=== PATIENT | male | born 1940 | race Caucasian/White ===

== ENCOUNTER 2016-12-21 07:10 | Day surgery (SDC) | payer MEDICARE ==
[~2016-12-21] VITALS: Ht 185.4 cm; Wt 84.3 kg
[~2016-12-21 07:10] MED LIST: ASPI-557 PO; ATOR10TA64 PO; LEVO50TA11 PO; LIDOCAINE 1% (10mg/ml) 2ml SDV INJ ONE; LR 1,000 ML IV SCH; OMEP20CA10 PO
--- OUTSIDE RECORDS SUMMARY | 2016-12-21 07:23 | XMS REPORT | Referral Summary ---
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 Discharge Disposition: 01-Home or Self Care Attending Physician: Marcus Viveros MD Admitting Physician: aMrcus Viveros MD Vital Signs Most recent to 1 oldest [Reference Range]: Blood Pressure 122/76 mmHg [90-140/60-90 mmHg] (06/05/16 9:15 AM) Problem List Condition Effective Dates Status Health Status Informant Actinic keratosis Active (disorder)(Confirmed ) BPH with urinary Active obstruction(Confirme d) Chicken Active pox(Confirmed) Dementia(Confirmed) Active Dupuytren Active contracture(Confirme d) GERD Active (gastroesophageal reflux disease)(Confirmed) Hepatitis(Confirmed) 1982 Active High Active cholesterol(Confirme d) Adult Active hypothyroidism(Confi rmed) Jaundice(Confirmed) 1982 Active Elevated Active PSA(Confirmed) 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) Xerosis of Active skin(Confirmed) Allergies, Adverse Reactions, Alerts No Known Allergies Medications Aspirin Low Dose 81 mg, Oral, Daily, 0 Refill(s) Start Date: 01/13/14 Status: Ordered atorvastatin 10 mg oral tablet See Instructions, TAKE ONE TABLET BY MOUTH EVERY NIGHT AT BEDTIME, # 90 tabs, eRx: [facility] #[id number], TAKE ONE TABLET BY MOUTH EVERY NIGHT AT BEDTIME Start Date: 05/29/16 Status: Ordered Eye Promise Eye Promise, See Instructions, ONE ORAL DAILY IN EVENING, 0 Refill(s) Start Date: 07/05/15 Status: Ordered levothyroxine 50 mcg (0.05 mg) oral tablet 50 mcg 1 tabs, Oral, Daily, # 90 tabs, 1 Refill(s), Pharmacy: [facility] # [id number], 1 tabs Oral Daily Start Date: 03/16/16 Status: Ordered Lutein 20 mg oral tablet 1 tabs, Oral, Daily, # 30 tabs, 0 Refill(s) Start Date: 01/13/14 Status: Ordered Misc Medication See Instructions, B COMPLEX VITAMIN ONE ORAL DAILY IN EVENING, 0 Refill(s) Start Date: 05/10/16 Status: Ordered multivitamin 1 tabs, Oral, Daily, 0 Refill(s) Start Date: 01/13/14 Status: Ordered omeprazole 20 mg oral delayed release capsule 20 mg 1 caps, Oral, Daily, # 90 caps, 1 Refill(s), Pharmacy: [facility] # [id number], 1 caps Oral Daily Start Date: 03/16/16 Status: Ordered Results No data available for this section Immunizations Vaccine Date Refusal Reason tetanus/diphth/pertuss (Tdap) adult/adol 02/20/10 influenza virus vaccine, inactivated 08/30/15 influenza virus vaccine, inactivated 05/06/14 influenza virus vaccine, live 05/06/13 tetanus-diphth toxoids (Td) adult/adol 08/04/01 Procedures Procedure Date Related Diagnosis Body Site Measurement of post-voiding residual urine 06/05/16 and/or bladder capacity by ultrasound, non-imaging Cystoscopy with Transurethral Resection 05/10/16 Bladder Neck1 Cystoscopy Prostate Thermal Treatment2 07/19/15 S/P colonoscopy 2004 H/O circumcision 1942 SURGERY TO CORRECT TIGHT TENDONS IN BILAT HANDS DUE TO DUPYTREN'S CONTRACTURE3 1auto-populated from documented surgical case 2auto-populated from documented surgical case 3X 3 Social History Social History Type Response Smoking Status Never smoker Assessment and Plan Extracted from: Title: Office Visit Note Author: Marcus Viveros MD Date: 06/05/16 Assessment/Plan 1.BPH without urinary obstruction
--- OUTSIDE RECORDS SUMMARY | 2016-12-21 07:23 | XMS REPORT | Referral Summary ---
Author Author [facility] Organization [facility] Address Unknown Phone Unavailable Care Team Providers Care Coin Machine Collector Name Role Phone Leija Alicia Primary Care Physician [phone] Encounter Date(s): 05/10/16 - 05/10/16 [facility] [address] [place], [place] [address] Discharge Disposition: 01-Home or Self Care Attending Physician: Marcus Viveros MD Admitting Physician: Marcus Viveros MD Vital Signs Most recent to 1 oldest [Reference Range]: Temperature Skin 36.0 degC [36-37 degC] (05/10/16 9:26 AM) Temperature Temporal 35.9 degC Artery [36.3-37.8 *LOW* degC] (05/10/16 2:09 PM) Heart Rate Monitored 75 bpm [60-100 bpm] (05/10/16 2:45 PM) Respiratory Rate 47 br/min [14-20 br/min] *HI* (05/10/16 2:30 PM) Blood Pressure 126/86 mmHg [90-140/60-90 mmHg] (05/10/16 2:45 PM) Mean Arterial 106 mmHg Pressure, Cuff (05/10/16 2:45 PM) SpO2 98 % (05/10/16 2:45 PM) Problem List Condition Effective Dates Status Health Status Informant Actinic keratosis Active (disorder)(Confirmed ) BPH with urinary Active obstruction(Confirme d) Chicken Active pox(Confirmed) Dementia(Confirmed) Active Dupuytren Active contracture(Confirme d) GERD Active (gastroesophageal reflux disease)(Confirmed) Hepatitis(Confirmed) 1983 Active High Active cholesterol(Confirme d) Adult Active [...] NIGHT AT BEDTIME, # 90 tabs, eRx: [facility] #[id number], TAKE ONE TABLET BY MOUTH EVERY NIGHT AT BEDTIME Start Date: 02/21/16 Status: Ordered Eye Promise Eye Promise, See Instructions, ONE ORAL DAILY IN EVENING, 0 Refill(s) Start Date: 07/05/15 Status: Ordered Flomax 0.4 mg oral capsule 0.8 mg 2 caps, Oral, Daily, # 60 caps, 4 Refill(s), Pharmacy: [facility] # [id number], 2 caps Oral Daily Start Date: 03/21/16 Status: Ordered levothyroxine 50 mcg (0.05 mg) oral tablet 50 mcg 1 tabs, Oral, Daily, # 90 tabs, 1 Refill(s), Pharmacy: [facility] # [id number], 1 tabs Oral Daily Start Date: 03/16/16 [...] Daily, # 90 caps, 1 Refill(s), Pharmacy: [facility] # [id number], 1 caps Oral Daily Start Date: 03/16/16 Status: Ordered Results Chemistry Most recent to 1 oldest [Reference Range]: Blood Glucose, 92 mg/dL Capillary [70-100 (05/10/16 9:44 AM) mg/dL] Blood Glucose, 92 mg/dL Capillary [74-106 (05/10/16 9:44 AM) mg/dL] Immunizations Vaccine Date Refusal Reason tetanus/diphth/pertuss (Tdap) adult/adol 02/20/10 influenza virus vaccine, inactivated 08/30/15 influenza virus vaccine, inactivated 05/06/14 influenza virus vaccine, live 05/06/13 tetanus-diphth toxoids (Td) adult/adol 08/04/01 Procedures Procedure Date Related Diagnosis Body Site Cystoscopy with Transurethral Resection 05/10/16 Bladder Neck1 Cystoscopy Prostate Thermal Treatment2 07/19/15 S/P colonoscopy 2004 H/O circumcision 194 SURGERY TO CORRECT TIGHT TENDONS IN BILAT HANDS DUE TO DUPYTREN'S CONTRACTURE3 1auto-populated from documented surgical case 2auto-populated from documented surgical case 3X 3 Social History Social History Type Response Smoking Status Never smoker Assessment and Plan No data available for this section
--- OUTSIDE RECORDS SUMMARY | 2016-12-21 07:23 | XMS REPORT | Referral Summary ---
Author Author [facility] Organization [facility] Address Unknown Phone Unavailable Care Team Providers Care Clinical Mental Health Counselor Name Role Phone Alicia Leija Primary Care Physician [phone] Encounter Date(s): 03/16/16 - 03/16/16 [facility] [place] [address] Discharge Diagnosis: GERD (gastroesophageal reflux disease) Discharge Diagnosis: BPH with urinary obstruction Discharge Diagnosis: Adult hypothyroidism Discharge Diagnosis: High cholesterol Discharge Disposition: 01-Home or Self Care Attending Physician: Natalee Bravo PA-C Admitting Physician: Natalee Bravo PA-C Vital Signs Most recent to 1 oldest [Reference Range]: Temperature Tympanic 36.9 degC [36.6-38.1 degC] (03/16/16 1:06 PM) Peripheral Pulse 72 bpm Rate [60-100 bpm] (03/16/16 1:06 PM) Respiratory Rate 17 br/min [14-20 br/min] (03/16/16 1:06 PM) Blood Pressure 108/60 mmHg [90-140/60-90 mmHg] (03/16/16 1:06 PM) SpO2 98 % (03/16/16 1:06 PM) Problem List Condition Effective Dates Status [...] NIGHT AT BEDTIME, # 90 tabs, eRx: [facility] #[id number], TAKE ONE TABLET BY MOUTH EVERY NIGHT AT BEDTIME Start Date: 02/21/16 Status: Ordered Eye Promise Eye Promise, 0 Refill(s) Start Date: 07/05/15 Status: Ordered Flomax 0.4 mg oral capsule 0.4 mg 1 caps, Oral, Daily, # 90 caps, 0 Refill(s), Pharmacy: [facility] # [id number], 1 caps Oral Daily Start Date: 03/07/16 Status: Ordered levothyroxine 50 mcg (0.05 mg) oral tablet 50 mcg 1 tabs, Oral, Daily, # 90 tabs, 1 Refill(s), Pharmacy: [facility] # [id number], 1 tabs Oral Daily Start Date: 03/16/16 Status: Ordered Lutein 20 mg oral tablet 1 tabs, Oral, Daily, # 30 tabs, 0 Refill(s) Start Date: 01/13/14 Status: Ordered multivitamin Daily, 0 Refill(s) Start Date: 01/13/14 Status: Ordered omeprazole 20 mg oral delayed release capsule 20 mg 1 caps, Oral, Daily, # 90 caps, 1 Refill(s), Pharmacy: [facility] # [id number], 1 caps Oral Daily Start Date: 03/16/16 Status: Ordered Results No data available for this section Immunizations Vaccine Date Refusal Reason tetanus/diphth/pertuss (Tdap) adult/adol 02/20/10 influenza virus vaccine, inactivated 08/30/15 influenza virus vaccine, inactivated 05/06/14 influenza virus vaccine, live 05/06/13 tetanus-diphth toxoids (Td) adult/adol 08/04/01 Procedures Procedure Date Related Diagnosis Body Site Cystoscopy Prostate Thermal Treatment1 07/19/15 S/P colonoscopy 2004 H/O circumcision 1942 SURGERY TO CORRECT TIGHT TENDONS IN BILAT HANDS DUE TO DUPYTREN'S CONTRACTURE2 1auto-populated from documented surgical case 2X 3 Social History Social History Type Response Smoking Status Never smoker Assessment and Plan Extracted from: Title: Ambulatory Patient Education Author: Natalee Bravo PA-C Date : 03/16/16 Cardiovascular Dyslipidemia Dyslipidemia is an imbalance of the lipids in your blood. Lipids are waxy, fat- like proteins that your body needs in small amounts. Dyslipidemia often involves the lipids cholesterol or triglycerides. Common forms of dyslipidemia are: High levels of bad cholesterol (LDL cholesterol). LDL cholesterol is the type of cholesterol that causes heart disease. Low levels of good cholesterol (HDL cholesterol). HDL cholesterol is the type of cholesterol that helps protect against heart disease. High levels of triglycerides. Triglycerides are a fatty substance in the blood linked to a buildup of plaque on your arteries. RISK FACTORS Increased age. Having a family history of high cholesterol. Certain medicines, including control pills, diuretics, beta- blockers, and some medicines for depression. Smoking. Eating a high-fat diet. Being overweight. Medical conditions such as diabetes, polycystic ovary syndrome, , kidney disease, and hypothyroidism. Lack of regular exercise. SIGNS AND SYMPTOMS There are no signs or symptoms with dyslipidemia. DIAGNOSIS A simple blood test called a fasting blood test can be done to determine your level of: Total cholesterol. This is the combined number of LDL cholesterol and HDL cholesterol. A healthy number is lower than 200. LDL cholesterol. The goal number for LDL cholesterol is different for each person depending on risk factors. Ask your health care provider what your LDL cholesterol number should be. HDL cholesterol. A healthy level of HDL cholesterol is 60 or higher. A number lower than 40 for men or 50 for women is a danger sign. Triglycerides. A healthy triglyceride number is less than 150. TREATMENT Dyslipidemia is a treatable condition. Your health care provider will advise you on what type of treatment is best based on your age, your test results, and current guidelines. Treatment may include: Dietary changes. A dietitian may help you create a diet that is based on your risk factors, conditions, and lifestyle. Regular exercise. This can help lower your LDL cholesterol, raise your HDL cholesterol, and help with weight management. Check with your health care provider before beginning an exercise program. Most people should participate in 30 minutes of brisk exercise 5 days a week. Quitting smoking. Medicines to lower LDL cholesterol and triglycerides. If you have high levels of triglycerides, your health care provider may: Have you stop drinking alcohol. Have you restrict your fat intake. Have you eliminate refined sugars from your diet. Treat you for other conditions, such as underactive thyroid gland ( hypothyroidism) and high blood sugar (hyperglycemia). Your health care provider will monitor your lipid levels with regular blood tests. HOME CARE INSTRUCTIONS Eat a healthy diet. Follow any diet instructions if they were given to you by your health care provider. Maintain a healthy weight. Exercise regularly based on the recommendations of your health care provider. Do not use any tobacco products, including cigarettes, chewing tobacco, or electronic cigarettes. Take medicines only as directed by your health care provider. Keep all follow-up visits as directed by your health care provider. SEEK MEDICAL CARE IF: You are having possible side effects from your medicines. This information is not intended to replace advice given to you by your health care provider. Make sure you discuss any questions you have with your health care provider. Document Released: 07/27/2014 Document Revised: 08/12/2015 Document Reviewed: [facility] Patient Information 2016 [facility]. Family Medicine Gastroesophageal Reflux Disease, Adult Gastroesophageal reflux disease (GERD) happens when acid from your stomach flows up into the esophagus. When acid comes in contact with the esophagus, the acid causes soreness (inflammation) in the esophagus. Over time, GERD may create small holes (ulcers) in the lining of the esophagus. CAUSES Increased body weight. This puts pressure on the stomach, making acid rise from the stomach into the esophagus. Smoking. This increases acid production in the stomach. Drinking alcohol. This causes decreased pressure in the lower esophageal sphincter (valve or ring of muscle between the esophagus and stomach), allowing acid from the stomach into the esophagus. Late evening meals and a full stomach. This increases pressure and acid production in the stomach. A malformed lower esophageal sphincter. Sometimes, no cause is found. SYMPTOMS Burning pain in the lower part of the mid-chest behind the breastbone and in the mid-stomach area. This may occur twice a week or more often. Trouble swallowing. Sore throat. Dry cough. Asthma-like symptoms including chest tightness, shortness of breath, or wheezing. DIAGNOSIS Your caregiver may be able to diagnose GERD based on your symptoms. In some cases, X-rays and other tests may be done to check for complications or to check the condition of your stomach and esophagus. TREATMENT Your caregiver may recommend [id number] or prescription medicines to help decrease acid production. Ask your caregiver before starting or adding any new medicines. HOME CARE INSTRUCTIONS Change the factors that you can control. Ask your caregiver for guidance concerning weight loss, quitting smoking, and alcohol consumption. Avoid foods and drinks that make your symptoms worse, such as: Caffeine or alcoholic drinks. Chocolate. Peppermint or mint flavorings. Garlic and onions. Spicy foods. [place] fruits, such as oranges, demarco, or limes. Tomato-based foods such as sauce, chili, salsa, and pizza. Fried and fatty foods. Avoid lying down for the 3 hours prior to your bedtime or prior to taking a nap. Eat small, frequent meals instead of large meals. Wear loose-fitting clothing. Do not wear anything tight around your waist that causes pressure on your stomach. Raise the head of your bed 6 to 8 inches with wood blocks to help you sleep. Extra pillows will not help. Only take [id number] or prescription medicines for pain, discomfort , or fever as directed by your caregiver. Do not take aspirin, ibuprofen, or other nonsteroidal anti-inflammatory drugs (NSAIDs). SEEK IMMEDIATE MEDICAL CARE IF: You have pain in your arms, neck, jaw, teeth, or back. Your pain increases or changes in intensity or duration. You develop nausea, vomiting, or sweating (diaphoresis). You develop shortness of breath, or you faint. Your vomit is green, yellow, black, or looks like coffee grounds or blood. Your stool is red, bloody, or black. These symptoms could be signs of other problems, such as heart disease, gastric bleeding, or esophageal bleeding. MAKE SURE YOU: Understand these instructions. Will watch your condition. Will get help right away if you are not doing well or get worse. This information is not intended to replace advice given to you by your health care provider. Make sure you discuss any questions you have with your health care provider. Document Released: 05/01/2006 Document Revised: 08/12/2015 Document Reviewed: [facility] Patient Information 2016 [facility]. Hypothyroidism Hypothyroidism is a disorder of the thyroid. The thyroid is a large gland that is located in the lower front of the neck. The thyroid releases hormones that control how the body works. With hypothyroidism, the thyroid does not make enough of these hormones. CAUSES Causes of hypothyroidism may include: Viral infections. . Your own defense system (immune system) attacking your thyroid. Certain medicines. defects. Past radiation treatments to your head or neck. Past treatment with radioactive iodine. Past surgical removal of part or all of your thyroid. Problems with the gland that is located in the center of your brain ( pituitary). SIGNS AND SYMPTOMS Signs and symptoms of hypothyroidism may include: Feeling as though you have no energy (lethargy). Inability to tolerate cold. Weight gain that is not explained by a change in diet or exercise habits. Dry skin. Coarse hair. Menstrual irregularity. Slowing of thought processes. Constipation. Sadness or depression. DIAGNOSIS Your health care provider may diagnose hypothyroidism with blood tests and ultrasound tests. TREATMENT Hypothyroidism is treated with medicine that replaces the hormones that your body does not make. After you begin treatment, it may take several weeks for symptoms to go away. HOME CARE INSTRUCTIONS Take medicines only as directed by your health care provider. If you start taking any new medicines, tell your health care provider. Keep all follow-up visits as directed by your health care provider. This is important. As your condition improves, your dosage needs may change. You will need to have blood tests regularly so that your health care provider can watch your condition. SEEK MEDICAL CARE IF: Your symptoms do not get better with treatment. You are taking thyroid replacement medicine and: You sweat excessively. You have tremors. You feel anxious. You lose weight rapidly. You cannot tolerate heat. You have emotional swings. You have diarrhea. You feel weak. SEEK IMMEDIATE MEDICAL CARE IF: You develop chest pain. You develop an irregular heartbeat. You develop a rapid heartbeat. This information is not intended to replace advice given to you by your health care provider. Make sure you discuss any questions you have with your health care provider. Document Released: 07/22/2006 Document Revised: 08/12/2015 Document Reviewed: [facility] Patient Information 2016 [employer]. No follow up information was provided. Extracted from: Title: Office Visit Note- Med ck Author: Natalee Bravo PA-C Date: Assessment/Plan Adult hypothyroidism TSH was normal in August. Will refill Synthroid at this time. Recheck in 6 months. Ordered: Office Visit Level 4 Est 22391 BPH with urinary obstruction Follow with urology. Still having some issues with urinary frequency and they are adjusting his meds. Ordered: Office Visit Level 4 Est 71971 GERD (gastroesophageal reflux disease) Continue on Prilosec.Refills sent. Ordered: CBC w/ Differential Comprehensive Metabolic Panel Office Visit Level 4 Est 62071 High cholesterol Will check some labs when he is fasting.Contact pharmacy when running low, and may refill #90.Recheck in 6 months. Ordered: CBC w/ Differential Comprehensive Metabolic Panel Lipid Panel Office Visit Level 4 Est 86812 Orders: levothyroxine, 50 mcg 1 tabs, Oral, Daily, # 90 tabs, 1 Refill(s), Pharmacy: [facility] #[id number], 1 tabs Oral Daily omeprazole, 20 mg 1 caps, Oral, Daily, # 90 caps, 1 Refill(s), Pharmacy: [facility] #[id number], 1 caps Oral Daily
--- OUTSIDE RECORDS SUMMARY | 2016-12-21 07:23 | XMS REPORT | Referral Summary ---
Author Author [facility] Organization [facility] Address Unknown Phone Unavailable Care Team Providers Care Thermodynamics Teacher Name Role Phone Alicia Leija Primary Care Physician [phone] Encounter VC Date(s): 07/26/15 - 07/26/15 [facility] [address] [place] [address] Discharge Disposition: 01-Home or Self Care Attending Physician: Marcus Viveros MD Admitting Physician: Marcus Viveros MD Vital Signs Most recent to 1 oldest [Reference Range]: Blood Pressure 130/80 mmHg [90-140/60-90 mmHg] (07/26/15 10:51 AM) Problem List Condition Effective Dates Status Health Status Informant Actinic keratosis Active (disorder)(Confirmed ) Chicken Active pox(Confirmed) Dementia(Confirmed) Active Dupuytren Active contracture(Confirme d) Hepatitis(Confirmed) 1982 Active High Active cholesterol(Confirme d) Adult Active hypothyroidism(Confi rmed) Jaundice(Confirmed) 1982 Active Elevated Active PSA(Confirmed) 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) Xerosis of Active skin(Confirmed) Allergies, Adverse Reactions, Alerts No Known Medication Allergies Medications Aspirin Low Dose 81 mg, Oral, Daily, 0 Refill(s) Start Date: 01/13/14 Status: Ordered atorvastatin 10 mg oral tablet See Instructions, TAKE 1 TABLET AT BEDTIME, # 90 tabs, 1 Refill(s), eRx: [facility], TAKE 1 TABLET AT BEDTIME Start Date: 01/10/15 Status: Ordered Cialis 10 mg oral tablet See Instructions, as needed for erectile dysfunction, 0.5 tabs Oral daily, # 48 tabs, 1 Refill(s) Start Date: 05/27/15 Status: Ordered Eye Promise Eye Promise, 0 Refill(s) Start Date: 07/05/15 Status: Ordered Lutein 20 mg oral tablet 1 tabs, Oral, Daily, # 30 tabs, 0 Refill(s) Start Date: 01/13/14 Status: Ordered multivitamin Daily, 0 Refill(s) Start Date: 01/13/14 Status: Ordered omeprazole 20 mg oral delayed release capsule See Instructions, TAKE 1 CAPSULE DAILY BEFORE A MEAL, # 90 caps, 1 Refill(s), eRx: [facility], TAKE 1 CAPSULE DAILY BEFORE A MEAL Start Date: 02/07/15 Status: Ordered Synthroid 50 mcg (0.05 mg) oral tablet 50 mcg 1 tabs, Oral, Daily, Will need appt. for next refill., # 90 tabs, 0 Refill(s), [facility]acy: [facility], 1 tabs Oral Daily,x90 days, Instr:Will need appt. for next refill. Start Date: 02/07/15 Stop Date: 05/08/15 Status: Ordered Results No data available for this section Immunizations Vaccine Date Refusal Reason tetanus/diphth/pertuss (Tdap) adult/adol 02/20/10 influenza virus vaccine, inactivated 05/06/14 influenza virus [...]
--- OUTSIDE RECORDS SUMMARY | 2016-12-21 07:23 | XMS REPORT | Referral Summary ---
Author Author [facility] Organization [facility] Address Unknown Phone Unavailable Care Team Providers Care Switchboard Operator Name Role Phone Alicia Leija Primary Care Physician [phone] Encounter [facility] Date(s): 08/31/15 - 08/31/15 [facility] [address] [place] [id number] Discharge Disposition: 01-Home or Self Care Attending Physician: Marcus Viveros MD Admitting Physician: Marcus Viveros MD Vital Signs Most recent to 1 oldest [Reference Range]: Peripheral Pulse 68 bpm Rate [60-100 bpm] (08/31/15 11:03 AM) Blood Pressure 105/75 mmHg [90-140/60-90 mmHg] (08/31/15 11:03 AM) Problem List Condition Effective Dates Status [...] NIGHT AT BEDTIME, # 90 tabs, eRx: [facility] #[id number], TAKE ONE TABLET BY MOUTH EVERY NIGHT AT BEDTIME Start Date: 08/12/15 Status: Ordered Cialis 10 mg oral tablet See Instructions, as needed for erectile dysfunction, 0.5 tabs Oral daily, # 48 tabs, 1 Refill(s) Start Date: 05/27/15 Status: Ordered Eye Promise Eye Promise, 0 Refill(s) Start Date: 07/05/15 Status: Ordered Flomax 0.4 mg oral capsule 0.4 mg 1 caps, Oral, Daily, # 90 caps, 0 Refill(s), Pharmacy: [facility] # [id number], 1 caps Oral Daily Start Date: 08/31/15 Status: Ordered Lutein 20 mg oral tablet [...] # 90 tabs, 0 Refill(s), [facility]acy: [facility], 1 tabs Oral Daily,x90 days, [...] Cystoscopy Prostate Thermal Treatment1 07/19/15 S/P colonoscopy 2005 H/O circumcision 1943 SURGERY TO 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
[2016-12-21 07:24] VITALS: BP 113/73; PULSE 79; RESP 16; TEMP 98.3; O2SAT 94
--- OUTSIDE RECORDS SUMMARY | 2016-12-21 07:24 | XMS REPORT | Continuity of Care Document ---
Author Author [facility] Organization [facility] Address Unknown Phone Unavailable Allergies Active Description Code Type Severity Reaction Onset Reported/Identified Relationship to Patient Clinical Status Yes NKDA N/A N/A Yes No Known Medication Allergies NKMA N/A N/A 02/22/2014 Yes No Known Medication Allergies NKMA N/A N/A 02/22/2014 Yes No Known Allergies No Known Allergies Drug Allergy Unknown N/A 03/08/2015 Yes No Known Allergies NKMA N/A N/A 11/30/2015 Yes No Known Allergies NKMA N/A N/A 11/30/2015 Medications Medication Packaging Start Date Stop Date Route Dosage Sig multivitamin(multivitamin) 01/13/2014 Daily atorvastatin(Lipitor 10 mg oral tablet) 1 tabs 01/13/201401/10 Oral 10 mg 1 tabs, Oral, Bedtime (once a day) omeprazole(PriLOSEC 20 mg oral delayed release capsule) 1 caps 01/13/2014 02/07/2015 Oral 20 mg 1 caps, Oral, Daily tamsulosin(tamsulosin 0.4 mg oral capsule) 1 caps 01/13/2014 Oral 0.4 mg 1 caps, Oral, Daily levothyroxine(Synthroid 50 mcg (0.05 mg) oral tablet) 1 tabs 04/07/2014 05/21/2014 Oral 50 mcg 1 tabs, Oral, Daily, 30 tabs tamsulosin(tamsulosin 0.4 mg oral capsule) 1 caps 04/21/2014 Oral 0.4 mg 1 caps, Oral, Daily, 90 caps tadalafil(Cialis 5 mg oral tablet) 1 tabs 04/28/20142013 Oral 5 mg 1 tabs, Oral, Daily, 30 tabs tamsulosin(tamsulosin 0.4 mg oral capsule) 1 caps 06/25/2014 Oral 0.4 mg 1 caps, Oral, Daily, 90 caps tadalafil(Cialis 5 mg oral tablet) 1 tabs 07/28/20142014 Oral 5 mg 1 tabs, Oral, Daily, 30 tabs tadalafil(Cialis 10 mg oral tablet) 0.5 tabs 10/05/20142014 Oral 5 mg 5 mg=0.5 tabs, Oral, Daily, PRN: as needed for erectile dysfunction , 48 tabs, 0 Refill(s) atorvastatin(atorvastatin 10 mg oral tablet) 01/10/201508/12 See Instructions, TAKE 1 TABLET AT BEDTIME, 90 tabs, 1 Refill(s) [id number] 02/03/2015 ORAL daily Lactated Ringers Injection(Lactated Ringers Injection 1, 000 mL) 1,000 mL 201407/19/2015 IV 20 mL/hr, IV HYDROcodone-acetaminophen(HYDROcodone-acetaminophen 5 mg- 325 mg oral tablet) 1 tabs 07/19/2015 07/19/2015 Oral 1 tabs, Oral, q4hr, PRN: Pain Severe (7-10) ondansetron(Zofran) 2 mL 07/19/2015 07/19/2015 IV Push 4 mg 4 mg= 2 mL, IV Push, q6hr, PRN: Nausea or Vomiting Dextrose 5% with 0.45% NaCl and KCl 20 m(Dextrose 5% with 0.45% NaCl and KCl 20 mEq/L 1,000 mL) 1, 000 mL 07/19/2015 07/19/2015 IV 125 mL/hr , IV ibuprofen(ibuprofen) 1 tabs 07/19/2015 07/19/2015 Oral 800 mg 800 mg=1 tabs, Oral, q8hr, PRN: Pain Moderate (4-6) ketorolac(Toradol) 1 mL 07/19/2015 07/19/2015 IV Push 15 mg 15 mg =1 mL, IV Push, q6hr, PRN: Pain Moderate (4-6) acetaminophen(acetaminophen) 2 tabs 07/19/2015 07/19/2015 Oral 650 mg 650 mg=2 tabs, Oral, q4hr, PRN: Pain Mild (1-3) tamsulosin(Flomax 0.4 mg oral capsule) 1 caps 08/31/20152015 Oral 0.4 mg 0.4 mg=1 caps, Oral, Daily, 90 caps, 0 Refill(s) tamsulosin(Flomax 0.4 mg oral capsule) 1 caps 03/07/2016 Oral 0.4 mg 0.4 mg=1 caps, Oral, Daily, 90 caps, 0 Refill(s) levothyroxine(levothyroxine 50 mcg (0.05 mg) oral tablet) 1 tabs 03/16/2016 09/03/2016 Oral 50 mcg 50 mcg=1 tabs, Oral, Daily, 90 tabs, 1 Refill (s) omeprazole(omeprazole 20 mg oral delayed release capsule) 1 caps 03/16/2016 09/03/2016 Oral 20 mg 20 mg=1 caps, Oral, Daily, 90 caps, 1 Refill(s ) tamsulosin(Flomax 0.4 mg oral capsule) 2 caps 03/21/20162015 Oral 0.8 mg 0.8 mg=2 caps, Oral, Daily, 60 caps, 4 Refill(s) atorvastatin(atorvastatin 10 mg oral tablet) 1 tabs 09/03/2016 Oral 10 mg 10 mg=1 tabs, Oral, Bedtime (once a day), LAST FILL. PT. NEEDS AN APPT., 90 tabs, 0 Refill(s) levothyroxine(levothyroxine 50 mcg (0.05 mg) oral tablet) 09/03/2016 See Instructions, TAKE ONE TABLET BY MOUTH DAILY, 90 tabs omeprazole(omeprazole 20 mg oral delayed release capsule) 09/03/2016 See Instructions, TAKE ONE CAPSULE BY MOUTH DAILY, 90 caps pneumococcal 13-valent conjugate vaccine(Prevnar 13 intramuscular suspension) 0.5 mL 11/08/2016 11/08/2016 IntraMuscular 0.5 mL , IntraMuscular, Once Problems Date Dx Coded Attending Type Code Diagnosis Diagnosed By 05/15/2016 Viveros Clay Final E03.9 Hypothyroidism, unspecified 05/15/2016 Viveros Clay Final F03.90 Unspecified dementia without behavioral disturbance 05/15/2016 Viveros Clay Final F41.8 Other specified anxiety disorders 05/15/2016 Viveros Clay Final L57.0 Actinic keratosis 05/15/2016 Viveros Clay Final L85.3 Xerosis cutis 05/15/2016 Viveros Clay Final M72.0 Palmar fascial fibromatosis [Dupuytren] 05/15/2016 Viveros Marcus Final 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 05/15/2016 Viveros Clay Reason 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 05/15/2016 Lymiranda Marcus Final N40.1 Benign prostatic hyperplasia with lower urinary tract symptoms 05/15/2016 Viveros Marcus Final R33.8 Other retention of urine 05/15/2016 Viveros Marcus Final Z79.82 senior living (current) use of aspirin 05/15/2016 Viveros Marcus Final Z79.899 Other group home (current) drug therapy 05/15/2016 Viveros Clay Final Z86.19 Personal history of other infectious and parasitic diseases 05/15/2016 Viveros Marcus Final Z87.448 Personal history of other diseases of urinary system Procedures Code Description Performed By Performed On [facility] VITRECTOMY NEC Wayne MISHRA, Tai P 03/08/2015 14.75 VITREOUS SUBSTITUT INJEC Tai Black MD P 03/08/2015 14.9 OTHER POST SEGMENT OPS Tai Black MD P 03/08/2015 [id number] Transurethral resection; of postoperative bladder neck contracture 05/10/2016 Results Test Result Range HEMOGLOBIN - 03/08/15 13:30 MEAN CELL VOLUME 97.2 fl 80.0-100.0 HEMOGLOBIN 14.5 gm/dL 14.0-18.0 Microbiology METABOLIC PANEL, BASIC - 03/08/15 13:30 POTASSIUM 4.4 mmol/L 3.5-5.3 EST GFR (MDRD) 60 mL/min > 59 ANION GAP 9 mmol/L 5-15 EST CrCl (CG) > 60 mL/min > 59 GLUCOSE 95 mg/dL 70-99 CALCIUM 8.6 mg/dL 8.5-10.1 BLOOD UREA NITROGEN 17 mg/dL 7-20 CREATININE 1.2 mg/dL 0.7-1.3 SODIUM 142 mmol/L 135-148 CHLORIDE 106 mmol/L 98-110 CARBON DIOXIDE 27 mmol/L 21-32 Microbiology Glucose NPT - 05/10/16 09:44 Glucose NPT 92 mg/dL 70-100 Encounters ACCT No. Visit Date/Time Discharge Status Pt. Type Provider Facility Loc./Unit Complaint [id number] 09/18/2013 09:40:00 09/18/2013 23 :59:59 CLS Outpatient
--- OUTSIDE RECORDS SUMMARY | 2016-12-21 07:24 | XMS REPORT | Referral Summary ---
Author Author [facility] Organization [facility] Address Unknown Phone Unavailable Care Team Providers Care Gluing Machine Operator Automatic Name Role Phone Alicia Leija Primary Care Physician [phone] Encounter [facility] [id number] Date(s): 07/19/15 - 07/19/15 [facility] [address] [place], [place] [address] Discharge Disposition: 01-Home or Self Care Attending Physician: Marcus Viveros MD Admitting Physician: Marcus Viveros MD Vital Signs Most recent to 1 oldest [Reference Range]: Temperature Skin 36.2 degC [36-37 degC] (07/19/15 2:00 PM) Temperature Temporal 36.6 degC Artery [36.3-37.8 (07/19/15 1:35 PM) degC] Heart Rate Monitored 75 bpm [60-100 bpm] (07/19/15 2:30 PM) Respiratory Rate 18 br/min [14-20 br/min] (07/19/15 2:30 PM) Blood Pressure 133/84 mmHg [90-140/60-90 mmHg] (07/19/15 2:30 PM) Mean Arterial 104 mmHg Pressure, Cuff (07/19/15 2:30 PM) SpO2 97 % (07/19/15 2:30 PM) Problem List Condition Effective Dates Status [...] # 90 tabs, 0 Refill(s), [facility]: [facility], 1 tabs Oral Daily,x90 days, Instr:Will need appt. for next refill. Start Date: 02/07/15 Stop Date: 05/08/15 Status: Ordered Results Hematology Most recent to 1 oldest [Reference Range]: WBC [4.8-10.8 5.6 10*3/uL 10*3/uL] (07/19/15 10:37 AM) RBC [4.60-6.20] 4.35 *LOW* (07/19/15 10:37 AM) Hgb [14.0-18.0 14.3 gm/dL gm/dL] (07/19/15 10:37 AM) Hct [42.0-52.0 %] 41.8 % *LOW* (07/19/15 10:37 AM) MCV [82.0-99.0 fL] 96.1 fL (07/19/15 10:37 AM) MCH [27.0-32.0 pg] 32.9 pg *HI* (07/19/15 10:37 AM) MCHC [32.0-36.0 34.2 gm/dL gm/dL] (07/19/15 10:37 AM) RDW [11.5-14.5 %] 14.5 % (07/19/15 10:37 AM) Platelet [150-400 223 10*3/uL 10*3/uL] (07/19/15 10:37 AM) MPV [9.4-12.3 fL] 9.7 fL (07/19/15 10:37 AM) Immature 0.2 % Granulocytes (07/19/15 10:37 AM) [0.0-1.0 %] Neutrophils [51-75 54 % %] (07/19/15 10:37 AM) Lymphocytes [20-46 33 % %] (07/19/15 10:37 AM) Monocytes [4-11 %] 10 % (07/19/15 10:37 AM) Eosinophils [0-4 %] 2 % (07/19/15 10:37 AM) Basophils [0-2 %] 1 % (07/19/15 10:37 AM) Neutro Absolute 3.03 10*3 [1.90-7.00 10*3] (07/19/15 10:37 AM) Lymph Absolute 1.88 10*3 [0.80-3.30 10*3] (07/19/15 10:37 AM) Crowley Absolute 0.58 10*3 [0.30-1.00 10*3] (07/19/15 10:37 AM) Eos Absolute 0.10 10*3 [0.00-0.50 10*3] (07/19/15 10:37 AM) Baso Absolute 0.04 10*3 [0.00-0.20 10*3] (07/19/15 10:37 AM) Chemistry Most recent to 1 oldest [Reference Range]: Sodium Lvl [136-144 134 mEq/L mEq/L] *LOW* (07/19/15 10:37 AM) Potassium Lvl 4.2 mEq/L [3.6-5.1 mEq/L] (07/19/15 10:37 AM) Chloride [99-109 102 mEq/L mEq/L] (07/19/15 10:37 AM) CO2 [22-32 mEq/L] 27 mEq/L (07/19/15 10:37 AM) AGAP [3-20] 5 (07/19/15 10:37 AM) BUN [4-20 mg/dL] 16 mg/dL (07/19/15 10:37 AM) Glucose Lvl [70-100 94 mg/dL mg/dL] (07/19/15 10:37 AM) Creatinine Lvl 1.09 mg/dL [0.64-1.27 mg/dL] (07/19/15 10:37 AM) eGFR [>60] >60 1 (07/19/15:37 AM) Calcium Lvl 8.8 mg/dL [8.6-10.0 mg/dL] (07/19/15:37 AM) Albumin Lvl [3.5-4.8 3.8 gm/dL gm/dL] (07/19/15:37 AM) Total Protein 6.7 gm/dL [6.1-7.9 gm/dL] (07/19/15 10:37 AM) Globulin [1.9-4.3 2.9 gm/dL gm/dL] (07/19/15 10:37 AM) ALT [17-63 U/L] 27 U/L (07/19/15 10:37 AM) AST [15-41 U/L] 26 U/L (07/19/15 10:37 AM) Alk Phos [26-104 42 U/L U/L] (07/19/15 10:37 AM) Bili Total [0.2-1.2 1.0 mg/dL 2 mg/dL] (07/19/15 10:37 AM) PSA (wihout Reflex 2.4 ng/mL 3 Free) [0.0-6.5 (07/19/15 10:37 AM) ng/mL] Blood Glucose, 88 mg/dL Capillary [74-106 (07/19/15 10:48 AM) mg/dL] Blood Glucose, 88 mg/dL Capillary [70-100 (07/19/15 10:48 AM) mg/dL] Chol [0-200 mg/dL] 165 mg/dL (07/19/15 10:37 AM) Trig [0-150 mg/dL] 39 mg/dL (07/19/15 10:37 AM) HDL [>40 mg/dL] 69 mg/dL (07/19/15 10:37 AM) LDL [0-100 mg/dL] 88 mg/dL (07/19/15 10:37 AM) VLDL Cholesterol 8 mg/dL [0-30 mg/dL] (07/19/15 10:37 AM) Cardiac Risk 2.4 [0.0-5.7] (07/19/15 10:37 AM) 1Result Comment: Multiply eGFR results by 1.21 for race. 2Result Comment: Naproxen, specifically the metabolite O-desmethylnaproxen, may cause spurious elevation in Total Bilirubin levels. 3Result Comment: AUA PSA Best Practice Guidelines: Age-Adjusted PSA Values by Ethnic Group Age Range Asians - Caucasians Americans 40-49 0-2.0 0-2.0 0-2.5 50-59 0-3.0 0-4.0 0-3.5 60-69 0-4.0 0-4.5 0-4.5 70-79 0-5.0 0-5.5 0-6.5 Immunizations Vaccine Date Refusal Reason tetanus/diphth/pertuss (Tdap) adult/adol 02/20/10 influenza virus vaccine, inactivated 05/06/14 influenza virus vaccine, live 05/06/13 tetanus-diphth toxoids (Td) adult/adol 08/04/01 Procedures Procedure Date Related Diagnosis Body Site Cystoscopy Prostate Thermal Treatment1 07/19/15 S/P colonoscopy 2004 H/O circumcision 194 SURGERY TO 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
--- OUTSIDE RECORDS SUMMARY | 2016-12-21 07:24 | XMS REPORT | Referral Summary ---
Author Author [facility] Organization [facility] Address Unknown Phone Unavailable Care Team Providers Care Provider Network Mgr Name Role Phone Alicia Leija Primary Care Physician [phone] Encounter [facility] Date(s): 07/20/15 - 07/20/15 [facility] [address] [place] [id number] Discharge Disposition: 01-Home or Self Care Attending Physician: Marcus Viveros MD Admitting Physician: Marcus Viveros MD Vital Signs Most recent to 1 oldest [Reference Range]: Blood Pressure 128/78 mmHg [90-140/60-90 mmHg] (07/20/15 8:39 AM) Problem List Condition Effective Dates Status [...] # 90 tabs, 0 Refill(s), [facility]acy: [facility], 1 tabs Oral Daily,x90 days, [...]
--- OUTSIDE RECORDS SUMMARY | 2016-12-21 07:24 | XMS REPORT | Referral Summary ---
Author Author [facility] Organization [facility] Address Unknown Phone Unavailable Care Team Providers Care Construction Ironworker Helper Name Role Phone Alicia Leija Primary Care Physician [phone] Encounter [facility] Date(s): 07/27/15 - 07/27/15 [facility] [address] [place] [address] Discharge Diagnosis: BPH loc w urin obs/LUTS Discharge Diagnosis: Urinary retention Discharge Disposition: 01-Home or Self Care Attending Physician: Maricruz Rosario APRN Admitting Physician: Maricruz Rosario APRN Vital Signs Most recent to 1 oldest [Reference Range]: Blood Pressure 120/70 mmHg [90-140/60-90 mmHg] (07/27/15 8:23 AM) Problem List Condition Effective Dates Status [...] # 90 tabs, 0 Refill(s), [facility]acy: [facility], 1 tabs Oral Daily,x90 days, [...] Body Site Measurement of post-voiding residual urine 07/27/15 and/or bladder capacity by ultrasound, non-imaging Cystoscopy Prostate Thermal Treatment1 07/19/15 S/P colonoscopy 2004 H/O circumcision 1943 SURGERY TO 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 He will follow-up with Dr. Alesha Sandoval as scheduled on August 11. If he has any questions or concerns prior to this he can contact our office. All of his questions were answered to his satisfaction.
--- OUTSIDE RECORDS SUMMARY | 2016-12-21 07:24 | XMS REPORT | Referral Summary ---
Author Author [facility] Organization [facility] Address Unknown Phone Unavailable Care Team Providers Care Cable Cutter And Swager Name Role Phone Alicia Leija Primary Care Physician [phone] Encounter [facility] Date(s): 03/21/16 - 03/21/16 [facility] [address] [place] [address] Discharge Diagnosis: BPH with urinary obstruction Discharge Disposition: 01-Home or Self Care Attending Physician: Marcus Viveros MD Admitting Physician: Marcus Viveros MD Vital Signs Most recent to 1 oldest [Reference Range]: Blood Pressure 112/72 mmHg [90-140/60-90 mmHg] (03/21/16 9:16 AM) Problem List Condition Effective Dates Status [...] NIGHT AT BEDTIME, # 90 tabs, eRx: [facility] #[id number], TAKE ONE TABLET BY MOUTH EVERY NIGHT AT BEDTIME Start Date: 02/21/16 Status: Ordered Eye Promise Eye Promise, 0 Refill(s) Start Date: 07/05/15 Status: Ordered Flomax 0.4 mg oral capsule 0.4 mg 1 caps, Oral, Daily, # 90 caps, 0 Refill(s), Pharmacy: [facility] # [id number], 1 caps Oral Daily Start Date: 03/07/16 Status: Ordered Flomax 0.4 mg oral capsule 0.8 mg 2 caps, Oral, Daily, # 60 caps, 4 Refill(s), Pharmacy: [facility] # [id number], 2 caps Oral Daily Start Date: 03/21/16 Status: Ordered levothyroxine 50 mcg (0.05 mg) oral tablet 50 mcg 1 tabs, Oral, Daily, # 90 tabs, 1 Refill(s), Pharmacy: [facility] # [id number], 1 tabs Oral Daily Start Date: 03/16/16 Status: Ordered Lutein 20 mg oral tablet 1 tabs, Oral, Daily, # 30 tabs, 0 Refill(s) Start Date: 01/13/14 Status: Ordered multivitamin Daily, 0 Refill(s) Start Date: 01/13/14 Status: Ordered omeprazole 20 mg oral delayed release capsule 20 mg 1 caps, Oral, Daily, # 90 caps, 1 Refill(s), Pharmacy: [facility] # [id number], 1 caps Oral Daily Start Date: 03/16/16 Status: Ordered Results No data available for this section Immunizations Vaccine Date Refusal Reason tetanus/diphth/pertuss (Tdap) adult/adol 02/20/10 influenza virus vaccine, inactivated 08/30/15 influenza virus vaccine, inactivated 05/06/14 influenza virus vaccine, live 05/06/13 tetanus-diphth toxoids (Td) adult/adol 08/04/01 Procedures Procedure Date Related Diagnosis Body Site Measurement of post-voiding residual urine 03/21/16 and/or bladder capacity by ultrasound, non-imaging Cystoscopy Prostate Thermal Treatment1 07/19/15 S/P colonoscopy 2004 H/O circumcision 1942 SURGERY TO CORRECT TIGHT TENDONS IN BILAT HANDS DUE TO DUPYTREN'S CONTRACTURE2 1auto-populated from documented surgical case 2X 3 Social History Social History Type Response Smoking Status Never smoker Assessment and Plan Extracted from: Title: Ambulatory Patient Education Author: Marcus Viveros MD Date: Family Medicine Benign Prostatic Hyperplasia An enlarged prostate (benign prostatic hyperplasia) is common in older men. You may experience the following: Weak urine stream. Dribbling. Feeling like the bladder has not emptied completely. Difficulty starting urination. Getting up frequently at night to urinate. Urinating more frequently during the day. HOME CARE INSTRUCTIONS Monitor your prostatic hyperplasia for any changes. The following actions may help to alleviate any discomfort you are experiencing: Give yourself time when you urinate. Stay away from alcohol. Avoid beverages containing caffeine, such as coffee, tea, and christiano, because they can make the problem worse. Avoid decongestants, antihistamines, and some prescription medicines that can make the problem worse. Follow up with your health care provider for further treatment as recommended. SEEK MEDICAL CARE IF: You are experiencing progressive difficulty voiding. Your urine stream is progressively getting narrower. You are awaking from sleep with the urge to void more frequently. You are constantly feeling the need to void. You experience loss of urine, especially in small amounts. SEEK IMMEDIATE MEDICAL CARE IF: You develop increased pain with urination or are unable to urinate. You develop severe abdominal pain, vomiting, a high fever, or fainting. You develop back pain or blood in your urine. MAKE SURE YOU: Understand these instructions. Will watch your condition. Will get help right away if you are not doing well or get worse. This information is not intended to replace advice given to you by your health care provider. Make sure you discuss any questions you have with your health care provider. Document Released: 07/22/2006 Document Revised: 08/12/2015 Document Reviewed: [facility] Patient Information 2016 [facility]. No follow up information was provided. Extracted from: Title: Office Visit Note Author: Marcus Viveros MD Date: 03/21/16 Assessment/Plan 1.BPH with urinary obstruction Orders: tamsulosin, 0.8 mg 2 caps, Oral, Daily, # 60 caps, 4 Refill(s), Pharmacy: [facility] #[id number], 2 caps Oral Daily
--- OUTSIDE RECORDS SUMMARY | 2016-12-21 07:24 | XMS REPORT | Referral Summary ---
Author Author [facility] Organization [facility] Address Unknown Phone Unavailable Care Team Providers Care Chief Lock Operator Name Role Phone Aliica Leija Primary Care Physician [phone] Encounter VC Date(s): 04/25/16 - 04/25/16 [facility] [address] [place] [id number] Discharge Diagnosis: BPH with urinary obstruction Discharge Disposition: 01-Home or Self Care Attending Physician: Marcus Viveros MD Admitting Physician: Marcus Viveros MD Vital Signs Most recent to 1 oldest [Reference Range]: Blood Pressure 100/70 mmHg [90-140/60-90 mmHg] (04/25/16 9:05 AM) Problem List Condition Effective Dates Status [...] NIGHT AT BEDTIME, # 90 tabs, eRx: [facility] #[id number], TAKE ONE TABLET BY MOUTH EVERY NIGHT AT BEDTIME Start Date: 02/21/16 Status: Ordered Eye Promise Eye Promise, 0 Refill(s) Start Date: 07/05/15 Status: Ordered Flomax 0.4 mg oral capsule 0.4 mg 1 caps, Oral, Daily, # 90 caps, 0 Refill(s), Pharmacy: [facility] # [id number], 1 caps Oral Daily Start Date: 03/07/16 Status: Ordered Flomax 0.4 mg oral capsule 0.8 mg 2 caps, Oral, Daily, # 60 caps, 4 Refill(s), Pharmacy: [facility] # [id number], 2 caps Oral Daily Start Date: 03/21/16 Status: Ordered levothyroxine 50 mcg (0.05 mg) oral tablet 50 mcg 1 tabs, Oral, Daily, # 90 tabs, 1 Refill(s), Pharmacy: [facility] # [id number], 1 tabs Oral Daily Start Date: 03/16/16 Status: Ordered Lutein 20 mg oral tablet 1 tabs, Oral, Daily, # 30 tabs, 0 Refill(s) Start Date: 01/13/14 Status: Ordered multivitamin Daily, 0 Refill(s) Start Date: 01/13/14 Status: Ordered omeprazole 20 mg oral delayed release capsule 20 mg 1 caps, Oral, Daily, # 90 caps, 1 Refill(s), Pharmacy: [facility] # [id number], 1 caps Oral Daily Start Date: 03/16/16 Status: Ordered Results Hematology Most recent to 1 oldest [Reference Range]: WBC [4.8-10.8 7.5 10*3/uL 10*3/uL] (04/25/16 9:52 AM) RBC [4.60-6.20] 4.25 *LOW* (04/25/16 9:52 AM) Hgb [14.0-18.0 14.1 gm/dL gm/dL] (04/25/16 9:52 AM) Hct [42.0-52.0 %] 40.3 % *LOW* (04/25/16 9:52 AM) MCV [82.0-99.0 fL] 94.8 fL (04/25/16 9:52 AM) MCH [27.0-32.0 pg] 33.2 pg *HI* (04/25/16 9:52 AM) MCHC [32.0-36.0 35.0 gm/dL gm/dL] (04/25/16 9:52 AM) RDW [11.5-14.5 %] 15.1 % *HI* (04/25/16 9:52 AM) Platelet [150-400 220 10*3/uL 10*3/uL] (04/25/16 9:52 AM) MPV [8.8-14.8 fL] 9.9 fL (04/25/16 9:52 AM) Immature 0.3 % Granulocytes (04/25/16:52 AM) [0.0-1.0 %] Neutrophils [51-75 66 % %] (04/25/16 9:52 AM) Lymphocytes [20-46 24 % %] (04/25/16 9:52 AM) Monocytes [4-11 %] 9 % (04/25/16 9:52 AM) Eosinophils [0-4 %] 1 % (04/25/16 9:52 AM) Basophils [0-2 %] 1 % (04/25/16 9:52 AM) Neutro Absolute 4.89 10*3 [1.90-7.00 10*3] (04/25/16 9:52 AM) Lymph Absolute 1.79 10*3 [0.80-3.30 10*3] (04/25/16 9:52 AM) [place]inta Absolute 0.66 10*3 [0.30-1.00 10*3] (04/25/16 9:52 AM) Eos Absolute 0.06 10*3 [0.00-0.50 10*3] (04/25/16 9:52 AM) Baso Absolute 0.04 10*3 [0.00-0.20 10*3] (04/25/16 9:52 AM) Coagulation Most recent to 1 oldest [Reference Range]: PT Venous (04/25/16 9:52 AM) INR [0.8-1.2] 1.1 1 (04/25/16 9:52 AM) PTT [25.0-35.0 28.3 seconds seconds] (04/25/16 9:52 AM) 1Result Comment: Normal (no anticoagulant): 0.8 - 1.2 Units Routine Therapeutic Range: 2.0 - 3.0 Units High Risk Therapeutic Range: 2.5 - 3.5 Units Chemistry Most recent to 1 oldest [Reference Range]: Sodium Lvl [135-144 137 mEq/L mEq/L] (04/25/16 9:52 AM) Potassium Lvl 4.4 mEq/L [3.5-5.2 mEq/L] (04/25/16 9:52 AM) Chloride [99-111 106 mEq/L mEq/L] (04/25/16 9:52 AM) CO2 [23-31 mEq/L] 25 mEq/L (04/25/16 9:52 AM) AGAP [3-20] 6 (04/25/16 9:52 AM) BUN [8-26 mg/dL] 19 mg/dL (04/25/16 9:52 AM) Glucose Lvl [70-99 110 mg/dL mg/dL] *HI* (04/25/16 9:52 AM) Creatinine Lvl 1.18 mg/dL [0.72-1.25 mg/dL] (04/25/16 9:52 AM) eGFR [>60 mL/min] >60 mL/min 1 (04/25/16 9:52 AM) Calcium Lvl 8.9 mg/dL [8.9-10.5 mg/dL] (04/25/16 9:52 AM) Albumin Lvl [3.4-4.8 4.0 gm/dL gm/dL] (04/25/16 9:52 AM) Total Protein 6.2 gm/dL [6.0-7.6 gm/dL] (04/25/16 9:52 AM) Globulin [1.8-4.0 2.2 gm/dL gm/dL] (04/25/16 9:52 AM) ALT [0-55 U/L] 22 U/L (04/25/16 9:52 AM) AST [5-34 U/L] 22 U/L (04/25/16 9:52 AM) Alk Phos [40-150 57 U/L U/L] (04/25/16 9:52 AM) Bili Total [0.2-1.2 0.4 mg/dL mg/dL] (04/25/16 9:52 AM) 1Result Comment: Multiply eGFR results by 1.21 for race. Urinalysis Most recent to 1 oldest [Reference Range]: UA WBC [0-4] 0-2 (04/25/16 9:52 AM) UA RBC [0-4] 0-4 (04/25/16 9:52 AM) Epithelial Cells 0-2 (04/25/16 9:52 AM) UA Mucous Present (04/25/16 9:52 AM) Immunizations Vaccine Date Refusal Reason tetanus/diphth/pertuss (Tdap) adult/adol 02/20/10 influenza virus vaccine, inactivated 08/30/15 influenza virus vaccine, inactivated 05/06/14 influenza virus vaccine, live 05/06/13 tetanus-diphth toxoids (Td) adult/adol 08/04/01 Procedures Procedure Date Related Diagnosis Body Site Measurement of post-voiding residual urine 04/25/16 and/or bladder capacity by ultrasound, non-imaging Cystoscopy [...] Viveros MD Date: Family Medicine Benign Prostatic Hypertrophy The prostate gland is part of the reproductive system of men. A normal prostate is about the size and shape of a walnut. The prostate gland produces a fluid that is mixed with sperm to make semen. This gland surrounds the urethra and is located in front of the rectum and just below the bladder. The bladder is where urine is stored. The urethra is the tube through which urine passes from the bladder to get out of the body. The prostate grows as a man ages. An enlarged prostate not caused by cancer is called benign prostatic hypertrophy (BPH). An enlarged prostate can press on the urethra. This can make it harder to pass urine. In the early stages of enlargement, the bladder can get by with a narrowed urethra by forcing the urine through. If the problem gets worse, medical or surgical treatment may be required. This condition should be followed by your health care provider. The accumulation of urine in the bladder can cause infection. Back pressure and infection can progress to bladder damage and kidney (renal) failure. If needed, your health care provider may refer you to a specialist in kidney and prostate disease (urologist). CAUSES BPH is a common health problem in men older than 50 years. This condition is a normal part of aging. However, not all men will develop problems from this condition. If the enlargement grows away from the urethra, then there will not be any compression of the urethra and resistance to urine flow.If the growth is toward the urethra and compresses it, you will experience difficulty urinating. SYMPTOMS Not able to completely empty your bladder. Getting up often during the night to urinate. Need to urinate frequently during the day. Difficultly starting urine flow. Decrease in size and strength of your urine stream. Dribbling after urination. Pain on urination (more common with infection). Inability to pass urine. This needs immediate treatment. The development of a urinary tract infection. DIAGNOSIS These tests will help your health care provider understand your problem: A thorough history and physical examination. A urination history, with the number of times you urinate, the amounts of urine, the strength of the urine stream, and the feeling of emptiness or fullness after urinating. A postvoid bladder scan that measures any amount of urine that may remain in your bladder after you finish urinating. Digital rectal exam. In a rectal exam, your health care provider checks your prostate by putting a gloved, lubricated finger into your rectum to feel the back of your prostate gland. This exam detects the size of your gland and abnormal lumps or growths. Exam of your urine (urinalysis). Prostate specific antigen (PSA) screening. This is a blood test used to screen for prostate cancer. Rectal ultrasonography. This test uses sound waves to electronically produce a picture of your prostate gland. TREATMENT Once symptoms begin, your health care provider will monitor your condition. Of the men with this condition, one third will have symptoms that stabilize, one third will have symptoms that improve, and one third will have symptoms that progress in the first year. Mild symptoms may not need treatment. Simple observation and yearly exams may be all that is required. Medicines and surgery are options for more severe problems. Your health care provider can help you make an informed decision for what is best. Two classes of medicines are available for relief of prostate symptoms: Medicines that shrink the prostate. This helps relieve symptoms. These medicines take time to work, and it may be months before any improvement is seen. Uncommon side effects include problems with sexual function. Medicines to relax the muscle of the prostate. This also relieves the obstruction by reducing any compression on the urethra.This group of medicines work much faster than those that reduce the size of the prostate gland. Usually, one can experience improvement in days to weeks.. Side effects can include dizziness, fatigue, lightheadedness, and retrograde ejaculation (diminished volume of ejaculate). Several types of surgical treatments are available for relief of prostate symptoms: Transurethral resection of the prostate (TURP)In this treatment, an instrument is inserted through opening at the tip of the penis. It is used to cut away pieces of the inner core of the prostate. The pieces are removed through the same opening of the penis. This removes the obstruction and helps get rid of the symptoms. Transurethral incision (TUIP)In this procedure, small cuts are made in the prostate. This lessens the prostates pressure on the urethra. Transurethral microwave thermotherapy (TUMT)This procedure uses microwaves to create heat. The heat destroys and removes a small amount of prostate tissue. Transurethral needle ablation (TUNA)This is a procedure that uses radio frequencies to do the same as TUMT. Interstitial laser coagulation (ILC)This is a procedure that uses a laser to do the same as TUMT and TUNA. Transurethral electrovaporization (TUVP)This is a procedure that uses electrodes to do the same as the procedures listed above. SEEK MEDICAL CARE IF: You develop a fever. There is unexplained back pain. Symptoms are not helped by medicines prescribed. You develop side effects from the medicine you are taking. Your urine becomes very dark or has a bad smell. Your lower abdomen becomes distended and you have difficulty passing your urine. SEEK IMMEDIATE MEDICAL CARE IF: You are suddenly unable to urinate. This is an emergency. You should be seen immediately. There are large amounts of blood or clots in the urine. Your urinary problems become unmanageable. You develop lightheadedness, severe dizziness, or you feel faint. You develop moderate to severe low back or flank pain. You develop chills or fever. This information is not intended to replace advice given to you by your health care provider. Make sure you discuss any questions you have with your health care provider. Document Released: 07/22/2006 Document Revised: 07/27/2014 Document Reviewed: ExitCare Patient Information 2015 [employer]. No follow up information was provided. Extracted from: Title: Office Visit Note Author: Marcus Viveros MD Date: 04/25/16 Assessment/Plan 1.BPH with urinary obstruction
--- OUTSIDE RECORDS SUMMARY | 2016-12-21 07:24 | XMS REPORT | Referral Summary ---
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 Name Role Phone Alicia Leija Primary Care Physician [phone] Encounter VC Date(s): 05/11/16 - 05/11/16 [facility] [address] [place], [place] [address] Discharge Disposition: 01-Home or Self Care Attending Physician: Marcus Viveros MD Admitting Physician: Marcus Viveros MD Vital Signs No data available for this section Problem List Condition Effective Dates Status Health [...] tabs, eRx: [facility] #[id number], TAKE ONE TABLET BY MOUTH EVERY NIGHT AT BEDTIME Start Date: 02/21/16 Status: Ordered Eye Promise Eye Promise, See Instructions, ONE ORAL DAILY IN EVENING, 0 Refill(s) Start Date: 07/05/15 Status: Ordered Flomax 0.4 mg oral capsule 0.8 mg 2 caps, Oral, Daily, # 60 caps, 4 Refill(s), Pharmacy: [facility] # [id number], 2 caps Oral Daily Start Date: 03/21/16 Status: Ordered levothyroxine 50 mcg (0.05 mg) oral tablet 50 mcg 1 tabs, Oral, Daily, # 90 tabs, 1 Refill(s), Pharmacy: [facility] # [id number], 1 tabs Oral Daily Start Date: 03/16/16 [...] Daily, # 90 caps, 1 Refill(s), Pharmacy: [facility] # [id number], 1 caps Oral Daily Start Date: 03/16/16 [...]
--- OUTSIDE RECORDS SUMMARY | 2016-12-21 07:25 | XMS REPORT | Referral Summary ---
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 Discharge Disposition: Home or Self Care Attending Physician: Radha Murphy MD Admitting Physician: Radha Murphy MD Referring Physician: Yoel Leija MD Vital Signs No data available for [...] 0 Refill(s) Start Date: 01/13/14 Status: Ordered Cialis 5 mg oral tablet 1 tabs, Oral, Daily, # 30 tabs, 3 Refill(s), 1 tabs Oral Daily Start Date: 09/20/14 Status: Ordered Lipitor 10 mg oral tablet 1 tabs, Oral, Bedtime (once a day), 0 Refill(s) Start Date: 01/13/14 Status: Ordered Lutein 20 mg oral tablet 1 tabs, Oral, Daily, # 30 tabs, 0 Refill(s) Start Date: 01/13/14 Status: Ordered multivitamin Daily, 0 Refill(s) Start Date: 01/13/14 Status: Ordered PriLOSEC 20 mg oral delayed release capsule 1 caps, Oral, Daily, 0 Refill(s) Start Date: 01/13/14 Status: Ordered Synthroid 50 mcg (0.05 mg) oral tablet 1 tabs, Oral, Daily, # 90 tabs, 1 Refill(s), Pharmacy: [facility], 1 tabs Oral Daily,x90 days Start Date: 08/13/14 Stop Date: 02/09/15 Status: Ordered Results No data available for this section Immunizations Vaccine Date Refusal Reason tetanus/diphth/pertuss (Tdap) adult/adol 02/20/10 influenza virus vaccine, inactivated 05/06/14 influenza virus vaccine, live 05/06/13 tetanus-diphth toxoids (Td) adult/adol 08/04/01 Procedures Procedure Date Related Diagnosis Body Site S/P colonoscopy 2004 H/O circumcision 1942 Social History Social History Type Response Smoking Status Never smoker Assessment and Plan Extracted from: Title: Office Visit Note Author: Radha Murphy MD Date: 09/20/14 Assessment/Plan Cutaneous horn Solar degeneration
--- OUTSIDE RECORDS SUMMARY | 2016-12-21 07:25 | XMS REPORT | Referral Summary ---
Author Author [facility] Organization [facility] Address Unknown Phone Unavailable Care Team Providers Care Mottler Operator Name Role Phone Alicia Leija Primary Care Physician [phone] Encounter VC Date(s): 10/10/15 - 10/10/15 [facility] [address] [place], [place] [address] Discharge Diagnosis: Actinic keratoses Discharge Diagnosis: Freckles Discharge Diagnosis: Solar degeneration Discharge Disposition: 01-Home or Self Care Attending Physician: Radha Murphy [...] NIGHT AT BEDTIME, # 90 tabs, eRx: [facility] #[id number], TAKE ONE TABLET BY MOUTH EVERY NIGHT AT BEDTIME Start Date: 08/12/15 Status: Ordered Eye Promise Eye Promise, 0 Refill(s) Start Date: 07/05/15 Status: Ordered Flomax 0.4 mg oral capsule 0.4 mg 1 caps, Oral, Daily, # 90 caps, 0 Refill(s), Pharmacy: [facility] # [id number], 1 caps Oral Daily Start Date: 08/31/15 Status: Ordered levothyroxine 50 mcg (0.05 mg) oral tablet 50 mcg 1 tabs, Oral, Daily, should have lab for next refill, # 60 tabs, 0 Refill (s), Pharmacy: [facility] #[id number], 1 tabs Oral Daily,x60 days,Instr: should have lab for next refill Start Date: 09/01/15 Stop Date: 10/31/15 Status: Ordered Lutein 20 mg oral tablet 1 tabs, Oral, Daily, # 30 tabs, 0 Refill(s) Start Date: 01/13/14 Status: Ordered multivitamin Daily, 0 Refill(s) Start Date: 01/13/14 Status: Ordered omeprazole 20 mg oral delayed release capsule See Instructions, TAKE ONE CAPSULE BY MOUTH EVERY DAY BEFORE A MEAL, # 60 caps, eRx: [facility] #[id number], TAKE ONE CAPSULE BY MOUTH EVERY DAY BEFORE A MEAL Start Date: 09/01/15 Status: Ordered omeprazole 20 mg oral delayed release capsule See Instructions, TAKE ONE CAPSULE BY MOUTH EVERY DAY BEFORE A MEAL, # 60 caps, eRx: [facility] #[id number], TAKE ONE CAPSULE BY MOUTH EVERY DAY BEFORE A MEAL Start Date: 09/01/15 Status: Ordered Results No data available for this section Immunizations Vaccine Date Refusal Reason tetanus/diphth/pertuss (Tdap) adult/adol 02/20/10 influenza virus vaccine, inactivated 08/30/15 influenza virus vaccine, inactivated 05/06/14 influenza virus vaccine, live 05/06/13 tetanus-diphth toxoids (Td) adult/adol 08/04/01 Procedures Procedure Date Related Diagnosis Body Site Destruction (eg, laser surgery, 10/10/15 electrosurgery, cryosurgery, chemosurgery, surgical curettement), premalignant lesions (eg, actinic keratoses); first lesion Destruction (eg, laser surgery, 10/10/15 electrosurgery, cryosurgery, chemosurgery, surgical curettement), premalignant lesions (eg, actinic keratoses); second through 14 lesions, each (List separately in addition to code for first lesion) Cystoscopy Prostate Thermal Treatment1 07/19/15 S/P colonoscopy 2004 H/O circumcision 1943 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 This means it could develop into skin cancer if it is not treated. About 1% of actinic keratoses turn into skin cancer within a year. It is important to have all such growths removed to prevent them from developing into skin cancer. CAUSES Actinic keratosis is caused by getting too much ultraviolet (UV) radiation from the sun or other UV light sources. RISK FACTORS Factors that increase your chances of getting actinic keratosis include: Having light-colored skin and blue eyes. Having blonde or red hair. Spending a lot of time in the sun. Age. The risk of actinic keratosis increases with age. SYMPTOMS Actinic keratosis growths look like scaly, rough spots of skin. They can be as small as a pinhead or as big as a quarter. They may itch, hurt, or feel sensitive. Sometimes there is a little tag of pink or lewis skin growing off them. In some cases, actinic keratoses are easier felt than seen. They do not go away with the use of moisturizing lotions or creams. Actinic keratoses appear most often on areas of skin that get a lot of sun exposure. These areas include the: Scalp. Face. Ears. Lips. Upper back. Backs of the hands. Forearms. DIAGNOSIS Your health care provider can usually tell what is wrong by performing a physical exam. A tissue sample (biopsy) may also be taken and examined under a microscope. TREATMENT Actinic keratosis can be treated several ways. Most treatments can be done in your health care provider's office. Treatment options may include: Curettage. A tool is used to gently scrape off the growth. Cryosurgery. Liquid nitrogen is applied to the growth to freeze it. The growth eventually falls off the skin. Medicated creams, such as 5-fluorouracil or imiquimod. The medicine destroys the cells in the growth. Chemical peels. Chemicals are applied to the growth and the outer layers of skin are peeled off. Photodynamic therapy. A drug that makes your skin more sensitive to light is applied to the skin. A strong, blue light is aimed at the skin and destroys the growth. PREVENTION To prevent future sun damage: Try to avoid the sun between 10:00 a.m. and 4:00 p.m. when it is the strongest. Use a sunscreen or sunblock with SPF 30 or greater. Apply sunscreen at least 30 minutes before exposure to the sun. Always wear protective hats, clothing, and sunglasses with UV protection. Avoid medicines, herbs, and foods that increase your sensitivity to sunlight. Avoid tanning beds. HOME CARE INSTRUCTIONS If your skin was covered with a bandage, change and remove the bandage as directed by your health care provider. Keep the treated area dry as directed by your health care provider. Apply any creams as prescribed by your health care provider. Follow the directions carefully. Check your skin regularly for any changes. Visit a skin doctor (water treatment plant repairer) every year for a skin exam. SEEK MEDICAL CARE IF: Your skin does not heal and becomes irritated, red, or bleeds. You notice any changes or new growths on your skin. This information is not intended to replace advice given to you by your health care provider. Make sure you discuss any questions you have with your health care provider. Document Released: 10/18/2009 Document Revised: 12/06/2014 Document Reviewed: ExitCare Patient Information 2015 [employer]. No follow up information was provided. Extracted from: Title: Office Visit Note Author: Radha Murphy MD Date: 10/10/15 Assessment/Plan Actinic keratoses Freckles Solar degeneration
--- OUTSIDE RECORDS SUMMARY | 2016-12-21 07:25 | XMS REPORT | Referral Summary ---
Author Author [facility] Organization [facility] Address Unknown Phone Unavailable Care Team Providers Care Bench Carpenter Name Role Phone Alicia Leija Primary Care Physician [phone] Encounter VC Date(s): 08/09/15 - 08/09/15 [facility] [address] [place] [address] Discharge Diagnosis: Acute UTI Discharge Diagnosis: BPH loc w urin obs/LUTS Discharge Disposition: 01-Home or Self Care Attending Physician: Marcus Viveros MD Admitting Physician: Marcus Viveros MD Vital Signs Most recent to 1 oldest [Reference Range]: Blood Pressure 120/78 mmHg [90-140/60-90 mmHg] (08/09/15 9:30 AM) Problem List Condition Effective Dates Status [...] 1 Refill(s) Start Date: 05/27/15 Status: Ordered Cipro 500 mg oral tablet 500 mg 1 tabs, Oral, q12hr, X 10 days, # 20 tabs, 0 Refill(s), Pharmacy: [facility] #[id number], 1 tabs Oral q12hr,x10 days Start Date: 08/08/15 Stop Date: 08/18/15 Status: Ordered Eye Promise Eye Promise, 0 [...] Body Site Measurement of post-voiding residual urine 08/09/15 and/or bladder capacity by ultrasound, non-imaging Cystoscopy Prostate Thermal Treatment1 07/19/15 S/P colonoscopy 2004 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
--- OUTSIDE RECORDS SUMMARY | 2016-12-21 07:25 | XMS REPORT | Referral Summary ---
Author Author [facility] Organization [facility] Address Unknown Phone Unavailable Care Team Providers Care Mountain Guide Name Role Phone Alicia Leija Primary Care Physician [phone] Encounter VC Date(s): 11/30/15 - 11/30/15 [facility] [address] [place] [address] Discharge Diagnosis: BPH with urinary obstruction Discharge Disposition: 01-Home or Self Care Attending Physician: Marcus Viveros MD Admitting Physician: Marcus Viveros MD Vital Signs Most recent to 1 oldest [Reference Range]: Respiratory Rate 18 br/min [14-20 br/min] (11/30/15 9:19 AM) Blood Pressure 130/80 mmHg [90-140/60-90 mmHg] (11/30/15 9:19 AM) Problem List Condition Effective Dates Status [...] NIGHT AT BEDTIME, # 90 tabs, eRx: [facility] #[id number], TAKE ONE TABLET BY MOUTH EVERY NIGHT AT BEDTIME Start Date: 11/01/15 Status: Ordered Eye Promise Eye Promise, 0 Refill(s) Start Date: 07/05/15 Status: Ordered Flomax 0.4 mg oral capsule 0.4 mg 1 caps, Oral, Daily, # 90 caps, 0 Refill(s), Pharmacy: [facility] # [id number], 1 caps Oral Daily Start Date: 08/31/15 Status: Ordered levothyroxine 50 mcg (0.05 mg) oral tablet See Instructions, TAKE ONE TABLET BY MOUTH DAILY *NEED LABS*, # 60 tabs, eRx: [facility] #[id number], TAKE ONE TABLET BY MOUTH DAILY *NEED LABS* Start Date: 11/01/15 Status: Ordered Lutein 20 mg oral tablet 1 tabs, Oral, Daily, # 30 tabs, 0 Refill(s) Start Date: 01/13/14 Status: Ordered multivitamin Daily, 0 Refill(s) Start Date: 01/13/14 Status: Ordered omeprazole 20 mg oral delayed release capsule See Instructions, TAKE ONE CAPSULE BY MOUTH EVERY DAY BEFORE A MEAL, # 60 caps, eRx: [facility] #[id number], TAKE ONE CAPSULE BY MOUTH EVERY DAY BEFORE A MEAL Start Date: 11/01/15 Status: Ordered Results No data available for this section Immunizations Vaccine Date Refusal Reason tetanus/diphth/pertuss (Tdap) adult/adol 02/20/10 influenza virus vaccine, inactivated 08/30/15 influenza virus vaccine, inactivated 05/06/14 influenza virus vaccine, live 05/06/13 tetanus-diphth toxoids (Td) adult/adol 08/04/01 Procedures Procedure Date Related Diagnosis Body Site Measurement of post-voiding residual urine 11/30/15 and/or bladder capacity by ultrasound, non-imaging Cystoscopy Prostate Thermal Treatment1 07/19/15 S/P colonoscopy 2004 H/O circumcision 1942 SURGERY TO 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
--- OUTSIDE RECORDS SUMMARY | 2016-12-21 07:25 | XMS REPORT | Referral Summary ---
Author Author [facility] Organization [facility] Address Unknown Phone Unavailable Care Team Providers Care Re Etcher Name Role Phone Alicia Leija Primary Care Physician [phone] Encounter VC Date(s): 05/16/16 - 05/16/16 [facility] [address] [place] [address] Discharge Disposition: 01-Home or Self Care Attending Physician: Marcus Viveros MD Admitting Physician: Marcus Viveros MD Vital Signs Most recent to 1 oldest [Reference Range]: Blood Pressure 130/80 mmHg [90-140/60-90 mmHg] (05/16/16 11:52 AM) Problem List Condition Effective Dates Status [...] NIGHT AT BEDTIME, # 90 tabs, eRx: [facility] #[id number], TAKE ONE TABLET BY MOUTH EVERY NIGHT AT BEDTIME Start Date: 02/21/16 Status: Ordered Eye Promise Eye Promise, See Instructions, ONE ORAL DAILY IN EVENING, 0 Refill(s) Start Date: 07/05/15 Status: Ordered Flomax 0.4 mg oral capsule 0.8 mg 2 caps, Oral, Daily, # 60 caps, 4 Refill(s), Pharmacy: [facility] # [id number], 2 caps Oral Daily Start Date: 03/21/16 Status: Ordered levothyroxine 50 mcg (0.05 mg) oral tablet 50 mcg 1 tabs, Oral, Daily, # 90 tabs, 1 Refill(s), Pharmacy: [facility] # [id number], 1 tabs Oral Daily Start Date: 03/16/16 [...] Daily, # 90 caps, 1 Refill(s), Pharmacy: [facility] # [id number], 1 caps Oral Daily Start Date: 03/16/16 [...]
--- OUTSIDE RECORDS SUMMARY | 2016-12-21 07:25 | XMS REPORT | Referral Summary ---
Author Author [facility] Organization [facility] Address Unknown Phone Unavailable Care Team Providers Care Team Guide Name Role Phone Alicia Leija Primary Care Physician [phone] Encounter VC Date(s): 04/25/16 - 04/25/16 [facility] [address] [place], [place] [address] Discharge Disposition: 01-Home or Self Care [...] NIGHT AT BEDTIME, # 90 tabs, eRx: [facility] #[id number], TAKE ONE TABLET BY MOUTH EVERY NIGHT AT BEDTIME Start Date: 02/21/16 Status: Ordered Eye Promise Eye Promise, 0 Refill(s) Start Date: 07/05/15 Status: Ordered Flomax 0.4 mg oral capsule 0.4 mg 1 caps, Oral, Daily, # 90 caps, 0 Refill(s), Pharmacy: [facility] # [id number], 1 caps Oral Daily Start Date: 03/07/16 Status: Ordered Flomax 0.4 mg oral capsule 0.8 mg 2 caps, Oral, Daily, # 60 caps, 4 Refill(s), Pharmacy: [facility] # [id number], 2 caps Oral Daily Start Date: 03/21/16 Status: Ordered levothyroxine 50 mcg (0.05 mg) oral tablet 50 mcg 1 tabs, Oral, Daily, # 90 tabs, 1 Refill(s), Pharmacy: [facility] # [id number], 1 tabs Oral Daily Start Date: 03/16/16 Status: Ordered Lutein 20 mg oral tablet 1 tabs, Oral, Daily, # 30 tabs, 0 Refill(s) Start Date: 01/13/14 Status: Ordered multivitamin Daily, 0 Refill(s) Start Date: 01/13/14 Status: Ordered omeprazole 20 mg oral delayed release capsule 20 mg 1 caps, Oral, Daily, # 90 caps, 1 Refill(s), Pharmacy: [facility] # [id number], 1 caps Oral Daily Start Date: 03/16/16 [...]
--- OUTSIDE RECORDS SUMMARY | 2016-12-21 07:25 | XMS REPORT | Referral Summary ---
Author Author [facility] Organization [facility] Address Unknown Phone Unavailable Care Team Providers Care Weatherization Technician Name Role Phone Alicia Leija Primary Care Physician [phone] Encounter VC Date(s): 07/05/15 - 07/05/15 [facility] [address] [place] [address] Discharge Disposition: 01-Home or Self Care Attending Physician: Yoel Leija MD Admitting Physician: Yoel Leija MD Vital Signs Most recent to 1 oldest [Reference Range]: Peripheral Pulse 59 bpm Rate [60-100 bpm] *LOW* (07/05/15 10:41 AM) Blood Pressure 126/72 mmHg [90-140/60-90 mmHg] (07/05/15 10:41 AM) SpO2 98 % (07/05/15 10:41 AM) Problem List Condition Effective Dates Status [...] # 90 tabs, 0 Refill(s), Pharmacy: [facility], 1 tabs Oral Daily,x90 days, [...]
--- OUTSIDE RECORDS SUMMARY | 2016-12-21 07:25 | XMS REPORT | Referral Summary ---
Author Author [facility] Organization [facility] Address Unknown Phone Unavailable Care Team Providers Care Aerial Sprayer Name Role Phone Alicia Leija Primary Care Physician [phone] Encounter VC Date(s): 02/15/16 - 02/15/16 [facility] [address] [place] [address] Discharge Diagnosis: BPH with urinary obstruction Discharge Disposition: 01-Home or Self Care Attending Physician: Marcus Viveros MD Admitting Physician: Marcus Viveros MD Vital Signs Most recent to 1 oldest [Reference Range]: Respiratory Rate 18 br/min [14-20 br/min] (02/15/16 1:24 PM) Blood Pressure 120/80 mmHg [90-140/60-90 mmHg] (02/15/16 1:24 PM) Problem List Condition Effective Dates Status [...] NIGHT AT BEDTIME, # 90 tabs, eRx: [facility] #[id number], TAKE ONE TABLET BY MOUTH EVERY NIGHT AT BEDTIME Start Date: 11/01/15 Status: Ordered Eye Promise Eye Promise, 0 Refill(s) Start Date: 07/05/15 Status: Ordered Flomax 0.4 mg oral capsule 0.4 mg 1 caps, Oral, Daily, # 90 caps, 0 Refill(s), Pharmacy: [facility] # [id number], 1 caps Oral Daily Start Date: 08/31/15 Status: Ordered levothyroxine 50 mcg (0.05 mg) oral tablet See Instructions, TAKE ONE TABLET BY MOUTH DAILY *NEED LABS*, # 60 tabs, eRx: [facility] #[id number], TAKE ONE TABLET BY MOUTH DAILY *NEED [...] BEFORE A MEAL, # 60 caps, eRx: [facility] #[id number], TAKE ONE CAPSULE BY MOUTH EVERY DAY BEFORE A MEAL Start Date: 11/01/15 Status: Ordered VESIcare 5 mg oral tablet 5 mg 1 tabs, Oral, Daily, # 30 tabs, 4 Refill(s), Pharmacy: [facility] # [id number], 1 tabs Oral Daily Start Date: 12/01/15 Status: Ordered VESIcare 5 mg oral tablet 5 mg 1 tabs, Oral, Daily, # 30 tabs, 5 Refill(s), Pharmacy: [facility] # [id number], 1 tabs Oral Daily Start Date: 12/19/15 Status: Ordered Results No data available for this section Immunizations Vaccine Date Refusal Reason tetanus/diphth/pertuss (Tdap) adult/adol 02/20/10 influenza virus vaccine, inactivated 08/30/15 influenza virus vaccine, inactivated 05/06/14 influenza virus vaccine, live 05/06/13 tetanus-diphth toxoids (Td) adult/adol 08/04/01 Procedures Procedure Date Related Diagnosis Body Site Measurement of post-voiding residual urine 02/15/16 and/or bladder capacity by ultrasound, non-imaging Cystoscopy [...] Revised: 07/27/2014 Document Reviewed: ExitCare Patient Information 2016 [employer]. No follow up information was provided. Extracted from: Title: Office Visit Note Author: Marcus Viveros MD Date: 02/15/16 Assessment/Plan 1.BPH with urinary obstruction
--- OUTSIDE RECORDS SUMMARY | 2016-12-21 07:25 | XMS REPORT | Referral Summary ---
Author Author [facility] Organization [facility] Address Unknown Phone Unavailable Care Team Providers Care Telephonic Rn Name Role Phone Alicia Leija Primary Care Physician [phone] Encounter VC Date(s): 07/11/15 - 07/11/15 [facility] [address] [place] [address] Discharge Diagnosis: BPH w urinary obs/LUTS Discharge Disposition: 01-Home or Self Care Attending Physician: Marcus Viveros MD Admitting Physician: Marcus Viveros MD Referring Physician: Yoel Leija MD Vital Signs Most recent to 1 oldest [Reference Range]: Respiratory Rate 18 br/min [14-20 br/min] (07/11/15 1:16 PM) Blood Pressure 120/80 mmHg [90-140/60-90 mmHg] (07/11/15 1:16 PM) Problem List Condition Effective Dates Status [...] Body Site Measurement of post-voiding residual urine 07/11/15 and/or bladder capacity by ultrasound, non-imaging S/P colonoscopy 2004 H/O circumcision 1942 Social [...] are not doing well or get worse. Document Released: 07/22/2006 Document Revised: 03/24/2014 Document Reviewed: ExitCare Patient Information 2015 [email or web address]. This information is not intended to replace advice given to you by your health care provider. Make sure you discuss any questions you have with your health care provider. No follow up information was provided. Extracted from: Title: Office Visit Note Author: Marcus Viveros MD Date: 07/11/15 Assessment/Plan BPH w urinary obs/LUTS
--- OUTSIDE RECORDS SUMMARY | 2016-12-21 07:25 | XMS REPORT | Referral Summary ---
Author Author [facility] Organization [facility] Address Unknown Phone Unavailable Care Team Providers Care Boat Joiner Name Role Phone Alicia Leija Primary Care Physician [phone] Encounter VC Date(s): 09/03/16 - 09/03/16 [facility] [address] [place] [address] Discharge Diagnosis: Bladder atony Discharge Disposition: 01-Home or Self Care Attending Physician: Marcus Viveros MD Admitting Physician: Marcus Viveros MD Vital Signs Most recent to 1 oldest [Reference Range]: Blood Pressure 140/72 mmHg [90-140/60-90 mmHg] (09/03/16 8:40 AM) Problem List Condition Effective Dates Status [...] Status: Ordered atorvastatin 10 mg oral tablet 10 mg 1 tabs, Oral, Bedtime (once a day), LAST FILL. PT. NEEDS AN APPT., # 90 tabs, 0 Refill(s), Pharmacy: [facility] #[id number], 1 tabs Oral Bedtime ( once a day),Instr:LAST FILL. PT. NEEDS AN APPT. Start Date: 09/03/16 Status: Ordered Eye Promise Eye Promise, See Instructions, ONE ORAL DAILY IN EVENING, 0 Refill(s) Start Date: 07/05/15 Status: Ordered levothyroxine 50 mcg (0.05 mg) oral tablet See Instructions, TAKE ONE TABLET BY MOUTH DAILY, # 90 tabs, eRx: [facility] #[id number], TAKE ONE TABLET BY MOUTH DAILY Start Date: 09/03/16 Status: Ordered Lutein 20 mg oral tablet [...] Instructions, TAKE ONE CAPSULE BY MOUTH DAILY, # 90 caps, eRx: [facility] #[id number], TAKE ONE CAPSULE BY MOUTH DAILY Start Date: 09/03/16 Status: Ordered Results No data available for this section Immunizations Given and Recorded Vaccine Date Status Refusal Reason tetanus/diphth/pertuss (Tdap) adult/adol 02/20/10 Recorded influenza virus vaccine, inactivated 08/30/15 Recorded influenza virus vaccine, inactivated 05/06/14 Recorded influenza virus vaccine, live 05/06/13 Given tetanus-diphth toxoids (Td) adult/adol 08/04/01 Recorded Procedures Procedure Date Related Diagnosis Body Site [...] Visit Note Author: Marcus Viveros MD Date: 09/03/16 Assessment/Plan 1.Bladder atony
--- OUTSIDE RECORDS SUMMARY | 2016-12-21 07:25 | XMS REPORT | Referral Summary ---
Author Author [facility] Organization [facility] Address Unknown Phone Unavailable Care Team Providers Care Hearing Health Technician Name Role Phone Alicia Leija Primary Care Physician [phone] Encounter VC Date(s): 03/07/16 - 03/07/16 [facility] [address] [place] [address] Discharge Diagnosis: Bladder neck contracture Discharge Diagnosis: Other retention of urine Discharge Diagnosis: Urinary frequency Discharge Diagnosis: Urinary retention Discharge Disposition: 01-Home or Self Care Attending Physician: Maricruz Rosario APRN Admitting Physician: Maricruz Rosario APRN Vital Signs Most recent to 1 oldest [Reference Range]: Blood Pressure 124/74 mmHg [90-140/60-90 mmHg] (03/07/16 8:20 AM) Problem List Condition Effective Dates Status [...] NIGHT AT BEDTIME, # 90 tabs, eRx: [facility] #[id number], TAKE ONE TABLET BY MOUTH EVERY NIGHT AT BEDTIME Start Date: 02/21/16 Status: Ordered Eye Promise Eye Promise, 0 Refill(s) Start Date: 07/05/15 Status: Ordered Flomax 0.4 mg oral capsule 0.4 mg 1 caps, Oral, Daily, # 90 caps, 0 Refill(s), Pharmacy: [facility] # [id number], 1 caps Oral Daily Start Date: 03/07/16 Status: Ordered levothyroxine 50 mcg (0.05 mg) oral tablet See Instructions, TAKE ONE TABLET BY MOUTH DAILY *NEED LABS*, # 60 tabs, eRx: [facility] #[id number], TAKE ONE TABLET BY MOUTH DAILY *NEED [...] BEFORE A MEAL, # 60 caps, eRx: [facility] #[id number], TAKE ONE CAPSULE BY MOUTH EVERY DAY BEFORE A MEAL Start Date: 11/01/15 Status: Ordered Results No data available for this section Immunizations Vaccine Date Refusal Reason tetanus/diphth/pertuss (Tdap) adult/adol 02/20/10 influenza virus vaccine, inactivated 08/30/15 influenza virus vaccine, inactivated 05/06/14 influenza virus vaccine, live 05/06/13 tetanus-diphth toxoids (Td) adult/adol 08/04/01 Procedures Procedure Date Related Diagnosis Body Site Complex cystometrogram (ie, calibrated 03/07/16 electronic equipment); with voiding pressure studies (ie, bladder voiding pressure), any technique Complex cystometrogram (ie, calibrated 03/07/16 electronic equipment);.. Cystourethroscopy (separate procedure).. 03/07/16 Electromyography studies (EMG) of anal or 03/07/16 urethral sphincter, other than needle, any technique.. 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 Patient will try to urinate every 2 hours throughout the day. Up with Dr. Viveros in1-2 weeksto discuss options. She has any questions or concerns prior to this he will contact our office. All of his questions were answered to his satisfaction. 3.Urinary frequency Orders: tamsulosin, 0.4 mg 1 caps, Oral, Daily, # 90 caps, 0 Refill(s), Pharmacy: [facility] #[id number], 1 caps Oral Daily
--- OUTSIDE RECORDS SUMMARY | 2016-12-21 07:25 | XMS REPORT | Continuity of Care Document ---
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 Other specified diseases of sebaceous glands - *Chronic Actinic keratosis - *Symptomatic Actinic keratosis - *Acute Other chronic dermatitis due to solar radiation - *Chronic Chronic heartburn - *Chronic Other chronic dermatitis due to solar radiation - *Chronic Hyperlipidemia - *Chronic BPH (benign prostatic hyperplasia) - *Chronic BPH - *Chronic HYPERTROPHY (BENIGN) OF PROSTATE WITH URINARY OBSTRUCTION - * Chronic BENIGN LOCALIZED HYPERPLASIA OF PROSTATE WITH URINARY OBSTRUCTION - *Controlled Family History Family Member Diagnosis Age At Onset Status Unknown Social History Social History Element Description Quantity Unknown Allergies, Adverse Reactions, Alerts Substance Reaction Severity Status Unknown Medications Medication Instructions Dosage Effective Dates (start - stop) Status multivitamin capsule take 1 Tablet by Oral route every day 0 - Active saw palmetto 80 mg capsule take 1 po daily - Active aspirin 81 mg chewable tablet chew 1 tablet (81MG) by oral route every day 81 MG - Active lutein 10 mg tablet take 1 Tablet by Oral route every day 0 - Active spray 1 Tablet by Oral route every day 0 - Active daily - Active B-Complex tablet take 1 Tablespoon by Oral route every day 0 - Active melatonin 3 mg tablet 4/night to sleep - Active Prilosec 20 mg capsule,delayed release take 1 capsule (20MG) by oral route every day before a meal 20 MG - Active tamsulosin ER 0.4 mg capsule,extended release 24 hr take 1 capsule (0.4MG) by oral route every day 1/2 hour following the same meal each day 0.4 MG - Active Lipitor 10 mg tablet Take 1 tablet by mouth at bedtime. - Active Immunizations Vaccine Date Status Comments Flu (split) (3 yrs or older) completed Results Test Name Date and Time Measure Units Reference Range Abnormal Flag Comments Unknown Vital Signs Date / Time: Height Weight Pulse Rate Blood Pressure Temperature Unknown Procedures Procedure Date Unknown Encounters Encounter Location Date Patient Visit [facility] E21 Derm Patient Visit [facility] D[facility] Patient Visit [facility] Patient Visit [facility] U[facility] Patient Visit [facility] Patient Visit [facility] Patient Visit [facility] Patient Visit [facility] Advance Directives Directive Effective Date Unknown
--- OUTSIDE RECORDS SUMMARY | 2016-12-21 07:25 | XMS REPORT | Referral Summary ---
Author Author [facility] Organization [facility] Address Unknown Phone Unavailable Care Team Providers Care Facilities Specialist Name Role Phone Alicia Leija Primary Care Physician [phone] Encounter VC Date(s): 07/13/15 - 07/13/15 [facility] [address] [place] [address] Discharge Diagnosis: BPH w urinary obs/LUTS Discharge Disposition: 01-Home or Self Care Attending Physician: Maricruz Rosario APRN Admitting Physician: Maricruz Rosario APRN Vital Signs Most recent to 1 oldest [Reference Range]: Blood Pressure 120/80 mmHg [90-140/60-90 mmHg] (07/13/15 8:16 AM) Problem List Condition Effective Dates Status [...] refill., # 90 tabs, 0 Refill(s), Pharmacy: [facility], 1 tabs Oral Daily,x90 days, Instr:Will need appt. for next refill. Start Date: 02/07/15 Stop Date: 05/08/15 Status: Ordered Results No data available for this section Immunizations Vaccine Date Refusal Reason tetanus/diphth/pertuss (Tdap) adult/adol 02/20/10 influenza virus vaccine, inactivated 05/06/14 influenza virus vaccine, live 05/06/13 tetanus-diphth toxoids (Td) adult/adol 08/04/01 Procedures Procedure Date Related Diagnosis Body Site Complex cystometrogram (ie, calibrated 07/13/15 electronic equipment); with voiding pressure studies (ie, bladder voiding pressure), any technique Complex cystometrogram (ie, calibrated 07/13/15 electronic equipment);.. Cystourethroscopy (separate procedure).. 07/13/15 Electromyography studies (EMG) of anal or 07/13/15 urethral sphincter, other than needle, any technique.. Measurement of post-voiding residual urine 07/13/15 and/or bladder capacity by ultrasound, non-imaging S/P colonoscopy 2004 H/O circumcision 1942 Social History Social History Type Response Smoking Status Never smoker Assessment and Plan Extracted from: Title: Office Visit Note Author: Maricruz Rosario APRN Date: 07/13/15 Assessment/Plan 1.BPH w urinary obs/LUTS Options were discussed procedure and he wishes to proceed with a TURP procedure. This will be scheduled at his convenience with Dr. Viveros. Some benefits were discussed including bleeding, infection, and injury to adjacent organs. A side effect of retrograde ejaculation was also discussed and consider the possibility after the surgery. Patient voiced understanding to all of this. He will call if he has any questions prior to this procedure. All of his questions were answered to his satisfaction.
[2016-12-21 07:34] VITALS: Ht 185.4 cm; Wt 84.3 kg
[2016-12-21] MEDS ORDERED: LUTE20CA12 PO (07:47)
[2016-12-21] MEDS ORDERED: FOLI1CAP16 PO (07:47)
[2016-12-21] MEDS ORDERED: MULT-1243 PO (07:47)
[2016-12-21] MEDS ORDERED: EYE PROMISE RESTORE PO (07:47)
--- NOTE | 2016-12-21 09:00 | ANESPREOP ---
Anesthesia Record Date and Time DATE: 12/21/16 TIME: 08:58 Pre-Op Diagnosis [facility] Proposed Surgical Procedure COLONOSCOPY Allergies: Coded Allergies: No Known Allergies (Unverified , 12/21/16) Ht/Wt/BMI Height: 6 ' 1.00 " Weight: 84.300 kg BMI: 24.5 kg/m2 Vital Signs Date Time Temp Pulse Resp B/P Pulse Ox O2 Delivery O2 Flow Rate FiO2 12/21/16 07:24 98.3 79 16 113/73 94 Room Air Medications Inpatient Medications Current Medications Medications (Trade) Dose Ordered Sig/Rafita Start Time Stop Time Status Last Admin Dose Admin Lactated Ringer's (Lactated Ringers) 1,000 ml @ 30 mls/hr Q24H 12/21/16 07:00 12/21/16 07:38 30 MLS/HR Aspirin (Aspir 81) 81 Mg Tablet.dr, 1 TAB PO DAILY, (Reported) Last Taken: on 12/14/16 Atorvastatin Calcium (Atorvastatin Calcium) 10 Mg Tablet, 1 TAB PO HS, (Reported) Last Taken: on 12/19/161999 B Complex & C No.20/Folic Acid (Renal Caps Softgel) 1 Mg Capsule, 1 CAP PO DAILY, (Reported) Last Taken: on 12/07/16 Levothyroxine Sodium (Levothyroxine Sodium) 50 Mcg Tablet, 1 TAB PO DAILY, (Reported) Last Taken: on 12/20/16 0700 Lutein (Lutein) 20 Mg Capsule, 20 MG PO DAILY, (Reported) Last Taken: on 12/07/16 Multivits-Min/FA/Lycopene/Lut (Centrum Silver Tablet ) 1 Each Tablet, PO DAILY, (Reported) Last Taken: on 12/07/16 Omeprazole (Omeprazole) 20 Mg Capsule.dr, 1 TAB PO HS, (Reported) Last Taken: on 12/19/161999 [Eye Promise Restore] , 60 MG PO DAILY, ( Reported) Last Taken: on 12/07/16 Currently on Beta [place]: No Medical/Surgical History Anesthesia PMH: Reports: 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), Thyroid Disease (HYPOTHYROIDISM), Denies: *Diabetes, Anesthesia Reactions (NO AIRWAY ISSUES), Arthritis, Cancer, Clotting Problems, Glaucoma, Malignant Hyperthermia , Renal Disease, Sleep Apnea Smoking Status: Never smoker Use Chewing Tobacco?: No Second Hand Exposure: No Substance Use Type: does not use Alcohol Intake: none Past Surgical History Orthopedic Surgeries: Yes - LIZZ HAND SURGERY, REMOVAL LITTLE FINGER LEFT HAND Abdominal Surgeries: Genitourinary Surgeries: Cardiac Surgeries: Endocrine Surgeries: Reproductive Surgeries: Yes - PROSTATE SURGERY Neurological Surgeries: Ear Surgeries: Nose Surgeries: Throat Surgeries: Other Surgeries: Yes - C SCOPE Anesthesia Adverse Reactions: FOUND none Family Hx of Anesthesia Advers: none Hx of Motion Sickness: No Pertinent Findings EKG Rhythm: Sinus Rhythm Physical Exam Respiratory: Bilat breath sounds equal, Lungs clear Cardiovascular: FOUND Regular rate, rhythm, FOUND No murmur Airway Assessment Mallampati Score: I TMD: 3 Fingerbreadths Neck Extension: Good Overall Assessment: No Airway Concerns ASA: 2 Plan Anesthesia Plan: TIVA Discussion Discussed risks/options/alternatives of anesthesia and questions answered. Patient consents. Nursing pain assessment noted. Attestation Statement Prior to the delivery of any anesthetic medication, I examined the patient, developed the plan, obtained the patient's consent and discussed the risk and benefits of the procedure with the patient/guardian. AURELIANO GARLAND CRNA December 21, 2016 09:00
[2016-12-21 09:33] VITALS: BP 104/56; PULSE 66; RESP 16; TEMP 98.4; O2SAT 97
[2016-12-21 09:50] VITALS: BP 91/51; PULSE 58; RESP 13; O2SAT 93
[2016-12-21 10:04] VITALS: BP 104/56; PULSE 69; RESP 17; O2SAT 96
--- NOTE | 2016-12-21 10:06 | ANESPO ---
Post-Op Note Date 12/21/16 Time: 10:05 Status Pt Participated in Evaluation: Pt participated in person Vital Signs Date Time Temp Pulse Resp B/P Pulse Ox O2 Delivery O2 Flow Rate FiO2 12/21/16 09:50 58 13 91/51 93 Room Air 12/21/16 09:33 98.4 Respiratory Function: Airway patent Cardiovascular Function: Regular pulse Mental Status: Alert/oriented Pain Level Intensity: 0 Hydration: Taking po fluids Complications during Recovery None apparent Follow-Up Instructions Instructions Per Surgeon DOMINIQUE GONZALEZ December 21, 2016 10:06
[2016-12-21 10:16] VITALS: BP 114/70; PULSE 58; RESP 16; O2SAT 96
--- NOTE | 2016-12-21 12:24 | OPNOTEF ---
DATE OF PROCEDURE: 12/21/2016 SURGEON Elroy Thomas MD PREOPERATIVE DIAGNOSIS Colorectal cancer screening. POSTOPERATIVE DIAGNOSIS Colorectal cancer screening, sigmoid diverticulosis. PROCEDURE Colonoscopy. ANESTHESIA TIVA BRIEF HISTORY/INDICATIONS Mr. Berrios is a 76-year-old gentleman who presents today to [facility] to undergo a colonoscopy to serve as a portion of his overall preventive screening for colon cancer. For completeness please refer to notes included in the patient's chart. FINDINGS Upon colonoscopy there was no evidence for angiodysplastic lesions, polyps or leti malignancies. The patient was found to have a moderate number of diverticula within the sigmoid colon region. NARRATIVE OF PROCEDURE After informed consent was obtained, the patient was brought to the endoscopy suite and placed on the table in the left lateral decubitus position. The patient subsequently underwent total intravenous anesthesia by the nurse leg assembler per my request. A formal timeout was then completed. Next, a digital rectal examination was performed. Normal sphincter tone. No rectal masses were appreciated. An Olympus colonoscope was inserted in the anus and advanced with the lumen of the colon under direct visualization at all times until the cecum was ascertained. Triangulation of the tenia coli, ileocecal valve and appendiceal lumen were all visualized. The scope was then slowly withdrawn, again maintaining visualization of the lumen at all times. As stated above, the entire colon was without evidence for angiodysplastic lesions, polyps or leti malignancies. The patient was found to have a moderate number of diverticula within the sigmoid colon region. The scope continued to be withdrawn until it was brought forth back into the rectal vault. A J-maneuver was then performed. No worrisome perianal pathology was noted. The scope was allowed to straighten and was withdrawn through the anal verge. The patient tolerated the procedure without difficulty and was sent back to the preoperative area in stable condition. Secondary to the absence of findings upon this colonoscopy and the fact the patient is currently 76 years of age, this likely will be the last colonoscopy the patient will need in his lifetime. Typically, one would repeat a colonoscopy at a 10-year interval and the patient will be 86 years of age at that time. [facility]
== END 2016-12-21 10:30 | disposition home or self-care (01) ==
LOC: NSC 07:10
PROVIDERS: ATTEND Surgery
DX: Z12.11 Encounter for screening for malignant neoplasm of colon (principal); K57.30 Diverticulosis of large intestine without perforation or abscess without bleeding; E03.9 Hypothyroidism, unspecified; F03.90 Unspecified dementia, unspecified severity, without behavioral disturbance, psychotic disturbance, mood disturbance, and anxiety; K21.9 Gastro-esophageal reflux disease without esophagitis; E78.00 Pure hypercholesterolemia, unspecified; N40.1 Benign prostatic hyperplasia with lower urinary tract symptoms; N13.8 Other obstructive and reflux uropathy; Z79.82 Long term (current) use of aspirin; Z79.899 Other long term (current) drug therapy
CPT/HCPCS: G0121; J7120